=== PATIENT | female | born 1955 | race Caucasian/White ===

== ENCOUNTER → 2019-05-19 08:29 | Outpatient (CLI) | payer OTHER, SELFPAY ==
--- NOTE | ~2019-05-19 | CT_ITS ---
EXAMINATION: CT chest high resolution wo az EXAM DATE: 05/19/2019 09:08 INDICATION: Bronchiectasis. TECHNIQUE: Spiral CT of the chest without contrast. HRCT. Axial, coronal and sagittal images were re viewed. Coronal maximum intensity pixel images of chest reviewed. The dose-length product (DLP) for this examination was 147.61 mGy-cm. The exposure was tailored according to patient size (auto mA ex posure control), and iterative reconstruction (ASIR) was used as additional dose reduction technique. Comparison is made to prior examination from 30. FINDINGS: Again there is severe anterior, right middle lobe and lingular bronchiectasis with small a mount of adjacent airspace disease and some endobronchial debris. Airways otherwise widely patent. Sm all regions of tree-in-bud pattern reticular nodular airspace disease, probably chronic infectious pr ocess. There is a new 4 mm nodule in the right lower lobe on image 85, probably sequela from the same chronic process. Otherwise there is no significant interval change. Lungs are hyperinflated. No intr alobular septal thickening on the HRCT. There is no mediastinal, hilar or axillary lymphadenopathy. There are no pleural or pericardial effusions. There is no pneumothorax. Heart normal in size. No evidence of coronary arterial calcification. Upper abdomen is unremarkable. Mild thoracic spon dylosis. Old left rib fracture. IMPRESSION: 1. Severe right middle lobe and lingular bronchiectasis with mucus plugging unchanged. 2. Some scattered reticulonodular patterns with a new nodule in the right lower lobe likely same chr onic process. 3. Hyperinflation. Reviewed, dictated and finalized at location A. IMPRESSION: 1. Severe right middle lobe and lingular bronchiectasis with mucus plugging un changed. 2. Some scattered reticulonodular patterns with a new nodule in the right lowe r lobe likely same chronic process. 3. Hyperinflation.
== END ==
PROVIDERS: PCP Family Medicine; Visit Provider Nurse Practitioner Family
DX: J47.9 Bronchiectasis, uncomplicated (principal); R91.8 Other nonspecific abnormal finding of lung field
CPT/HCPCS: 71250

== ENCOUNTER → 2019-11-24 09:20 | Outpatient (CLI) | payer OTHER, SELFPAY ==
--- NOTE | ~2019-11-24 | CT_ITS ---
EXAMINATION:CT chest wo con DATE: 11/24/2019 09:43 INDICATION: Bronchiectasis, uncomplicated. TECHNIQUE: Computed tomography (CT) of the chest was performed without intravenous contrast. Automate d exposure control and iterative reconstruction technique were employed. The dose-length product (DLP ) was 151.21 mGy-cm. COMPARISON: Chest CT 05/19/2019 FINDINGS: There is mild scarring at the lung apices. There is varicose bronchiectasis involving the r ight middle lobe, lingula, and anteromedial segment left lower lobe. There is mild bronchiectasis in anterior segment right upper lobe. There is a new 10 mm nodule in right lower lobe with surrounding g roundglass opacity. There is mucous plugging in right lower lobe. There are centrilobular nodules and tree-in-bud opacities in right middle lobe and lingula. No pleural effusion. The heart size is dana l. No pericardial effusion. There is mild thoracic spondylosis. IMPRESSION: 1. New 10 mm nodule with surrounding groundglass opacity in right lung lower lobe, most likely infect ion. Noncontrast, low-dose chest CT is recommended in 3-6 months to exclude malignancy. 2. Bronchiectasis in the lungs, worst in the right middle lobe and lingula. 3. Centrilobular nodules and tree-in-bud opacities in right middle lobe and lingula, consistent with chronic infection such as Mycobacterium avium intracellulare (JANES). Reviewed, dictated and finalized at location A. IMPRESSION: 1. New 10 mm nodule with surrounding groundglass opacity in right lung lower lo be, most likely infection. Noncontrast, low-dose chest CT is recommended in 3-6 months to exclude malignancy. 2. Bronchiectasis in the lungs, worst in the right middle lobe and lingula. 3. Centrilobular nodules and tree-in-bud opacities in right middle lobe and ravi gula, consistent with chronic infection such as Mycobacterium avium intracellul are (JANES).
== END ==
PROVIDERS: Visit Provider Nurse Practitioner Family
DX: J47.9 Bronchiectasis, uncomplicated (principal); R91.8 Other nonspecific abnormal finding of lung field
CPT/HCPCS: 71250

== ENCOUNTER 2019-12-19 00:53 | Outpatient (CLI) | payer OTHER, SELFPAY ==
[2019-12-19 18:59] LABS: SARS-CoV-2 RNA PCR Negative
== END 2019-12-19 00:54 | disposition home or self-care (01) ==
LOC: ANHCOVIDDT 00:54
PROVIDERS: PCP Family Medicine; Visit Provider Internal Medicine Critical Care Medicine
DX: Z01.812 Encounter for preprocedural laboratory examination (principal); Z20.828 Contact with and (suspected) exposure to other viral communicable diseases
CPT/HCPCS: 87635; C9803; U0003

== ENCOUNTER 2019-12-22 01:42 | Day surgery (SDC) | payer OTHER, SELFPAY ==
[2019-12-16 15:02] VITALS: BMI 22.1
[2019-12-22] VITALS (8 sets, daily range): BP systolic 110–153; BP diastolic 51–103; PULSE 57–87; RESP 14–25; TEMP 36.2–36.8; O2SAT 99–100; BMI 23.1
[2019-12-22] MEDS: LACTATED RINGERS 1,000 ML 150 ML IV CONT (11:19)
--- NOTE | 2019-12-22 12:15 | P.PNAN_ITS ---
Anes - Initial Pre Proc Eval Procedure: Operation Date: 12/22/19 13:00 Proposed Procedures p Bronchoscopy - Sergey Tolliver MD Date/Time: 12/22/19 12:15 Surgeon: Sergey Tolliver MD Pre Op Diagnosis: bronchiectasis Patient Data Age: 64 Gender: F Height: 5 ft 3 in Weight: 59.1 kg Last Vital Signs Temp 98.2 F 12/22/19 11:01 Pulse 62 12/22/19 11:01 Resp 16 12/22/19 11:01 BP 113/54 L 12/22/19 11:01 Pulse Ox 100 12/22/19 11:01 Allergies Allergy/AdvReac Type Severity Reaction Status Date / Time azithromycin AdvReac Unknown STOMACH Verified 12/22/19 11:00 ISSUES Home Medications Medication Instructions Recorded Confirmed Type estradiol 0.1 mg/24 hr weekly 1 patch TRANSDERM WEEKLY each 12/08/19 12/22/19 History transdermal patch albuterol sulfate [Ventolin HFA] 2 puff INHALATION QID PRN 12/16/19 12/22/19 History ktxddakybbzw-qju-uogq-FA-vit K 1 tablet PO DAILY 12/16/19 12/22/19 History [Adults Multivitamin] Patient hx anesthesia problems: none Family hx anesthesia problems: none PMFSH Past Medical History Medical History (Updated 12/08/19 @ 10:28 by Sergey Tolliver MD) Fatigue JANES (mycobacterium avium-intracellulare) Postsurgical menopause Pulmonary mycobacterial infection Diagnosed 2001 had been on extensive treatment with triple antibiotics over the course of 2 years. Screening cholesterol level Screening mammogram, encounter for Vitamin D deficiency Surgical History Surgical History H/O: hysterectomy Family History Family History Father Family history of lung cancer, Onset Age: 80 Family history of malignant neoplasm of brain, Onset Age: 80 Family history of malignant neoplasm of bone, Onset Age: 80 Other Diabetes mellitus Family history of cardiovascular disease Family history of elevated blood lipids Malignant neoplasm of prostate Social History Social History Smoking status: Never smoker Second hand tobacco smoke exposure: No Alcohol intake: current Drinks per week: 3 Substance use: never Spiritual care concerns: No Anes - Eval Final PreProcedure Day of Procedure 12/22/19 12:15 Patient weight: normal Heart: regular rate and rhythm Lungs: clear to auscultation Airway: Mallampati scale class II Neurological: alert and oriented Last oral intake: >/= 8 hours ASA classification: III Emergent: no Anesthetic plan: proceed Anesthesia type and monitoring: general LMA (or ETT; will check with Pulmonology) and standard monitoring Informed Consent: The patient's anesthetic plan and its attendant risks and benefits were discussed with the patient/family/POA. Questions were solicited and answers provided to the satisfaction of the patient/family/POA.
--- NOTE | 2019-12-22 13:16 | WPDHPUPDATE1 ---
History and Physical Update Update Date/Time: 12/22/19 13:16 History and Physical has been reviewed, including an updated exam of the patient. There are NO changes in the patient's condition. Risks, benefits, and alternatives have been discussed and questions answered. Patient agrees to proceed with procedure.
[2019-12-22] MEDS: LIDOCAINE HCL 2% LOCAL INJ 20 ML VIAL 6 ML IRRIGATION (13:41)
[2019-12-22] MEDS: SODIUM CHLORIDE 0.9% IV 500 ML BAG 180 ML IRRIGATION (13:42)
--- NOTE | 2019-12-22 14:34 | SUR.PHASEII ---
1350 DR. GAMBLE AT BEDSIDE IN GI RECOVERY. STATES NO NEED FOR POST PROCEDURE CHEST XRAY.
== END 2019-12-22 15:05 | disposition home or self-care (01) ==
PROVIDERS: PCP Family Medicine; Visit Provider Internal Medicine Critical Care Medicine
PROC: 0BJ08ZZ Inspection of Tracheobronchial Tree, Via Natural or Artificial Opening Endoscopic (ICD-10-PCS; CPT 31622; principal; 2019-12-22 13:00)
DX: J18.9 Pneumonia, unspecified organism (principal); R06.02 Shortness of breath; R91.1 Solitary pulmonary nodule; E55.9 Vitamin D deficiency, unspecified; Z90.2 Acquired absence of lung [part of]
CPT/HCPCS: 31624; 36415; 87015; 87070; 87075; 87116; 87205; 87206; 87279; 87486; 87581; 87635; 88104; 88108; 88160; 88184; 88305; 88312; C9803; J2405; J2704; J7040; J7120; U0003

== ENCOUNTER 2020-01-21 09:34 | Outpatient (CLI) | payer OTHER, SELFPAY ==
--- NOTE | ~2020-01-21 | CT_ITS ---
EXAMINATION: CT chest wo con EXAM DATE: 01/21/2020 09:58 INDICATION: J18.9 - Pneumonia, unspecified organism. TECHNIQUE: Spiral CT of the chest without contrast. Axial, coronal and sagittal images were reviewe d. Coronal maximum intensity pixel images of chest reviewed. The dose-length product (DLP) for this examination was 136.15 mGy-cm. The exposure was tailored according to patient size (auto mA exposur e control), and iterative reconstruction (ASIR) was used as additional dose reduction technique. Comp arison is made to prior examination from 11/24/2019. FINDINGS: There is severe right middle lobe and lingular bronchiectasis, less in the lower lobes. So me scattered reticulonodular tree-in-bud pattern opacities typically indicating endobronchial spread, chronic infectious process such as TB or JANES. Resolution of previously seen right lower lobe 10 mm n odule with groundglass halo, most likely infectious. No opacities suspicious for malignancy on this exam. There are no pleural or pericardial effusions. Tracheobronchial tree is patent. There is no media stinal, hilar or axillary lymphadenopathy. There is no pneumothorax. Heart normal in size. No e vidence of coronary arterial calcification. Upper abdomen is unremarkable. There is mild thoracic spondylosis without osteoblastic or osteolytic lesions identified. IMPRESSION: 1. Resolution of previously seen right lower lobe suspicious nodular density. 2. Bronchiectasis, scattered associated tree-in-bud pattern opacities likely endobronchial spread of chronic infectious process. Reviewed, dictated and finalized at location A. SHAVER IMPRESSION: 1. Resolution of previously seen right lower lobe suspicious nodular density. 2. Bronchiectasis, scattered associated tree-in-bud pattern opacities likely e ndobronchial spread of chronic infectious process.
== END 2020-01-21 09:35 | disposition home or self-care (01) ==
PROVIDERS: PCP Family Medicine; Visit Provider Internal Medicine Critical Care Medicine
DX: J18.9 Pneumonia, unspecified organism (principal); R91.8 Other nonspecific abnormal finding of lung field
CPT/HCPCS: 71250

== ENCOUNTER 2020-02-06 01:01 | Outpatient (CLI) | payer OTHER, SELFPAY ==
[2020-02-06 18:31] LABS: SARS-CoV-2 RNA PCR Negative
== END 2020-02-06 01:02 | disposition home or self-care (01) ==
LOC: ANHCOVIDDT 01:01
PROVIDERS: PCP Family Medicine; Visit Provider Internal Medicine Critical Care Medicine
DX: Z01.812 Encounter for preprocedural laboratory examination (principal); Z20.828 Contact with and (suspected) exposure to other viral communicable diseases
CPT/HCPCS: 87635; C9803; U0003

== ENCOUNTER 2020-02-09 01:05 | Day surgery (SDC) | payer OTHER, SELFPAY ==
[2020-02-01 12:18] VITALS: BMI 23.0
--- NOTE | ~2020-02-09 | XR_ITS ---
EXAMINATION: XR chest 1V portable EXAM DATE: 02/09/2020 13:19 INDICATION: Post Bronchoscopy . TECHNIQUE: Portable AP frontal chest x-ray was obtained. Comparison is made to prior examination from 09/24/2017. FINDINGS: There is moderate chronic hyperinflation. Some ill-defined bilateral mid lung zone airspace disease, probably same process described on recent CT scan dated 01/21/2020. No postprocedure pneumo thorax. Cardiomediastinal silhouette is normal. Mild degenerative changes. IMPRESSION: 1. Subsegmental ill-defined bilateral airspace disease, correlate with prior CT. 2. Chronic hyperinflation. 3. No evidence pneumothorax. Reviewed, dictated and finalized at location A. 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 Subsegmental ill-defined bilateral airspace disease, correlate with prior C T. 2. Chronic hyperinflation. 3. No evidence pneumothorax.
--- NOTE | 2020-02-09 09:16 | PM.IMHP ---
H&P: HPI History of Present Illness Date/Time: 02/08/2009:16 Chief Complaint: weakness, fatigue, dyspnea Narrative: Cristi Abraham is a 64 year old female well known to me with history of MAC lung disease who is here for a second bronchoscopy today. I suspected atypical pneumonia after first bronchoscopy showed signs of active infection but all cultures were negative but she continues to feel weak and unwell but denies any significant cough or sputum production, fever, chills, night sweats or weight loss. Review of Systems Review of Systems: All systems reviewed & are unremarkable except as noted in HPI and below PMFSH Past Medical History Medical History Atypical pneumonia Fatigue JANES (mycobacterium avium-intracellulare) Postsurgical menopause Pulmonary mycobacterial infection Diagnosed 2001 had been on extensive treatment with triple antibiotics over the course of 2 years. Screening cholesterol level Screening mammogram, encounter for Vitamin D deficiency Surgical History Surgical History H/O: hysterectomy Family History Family History Father Family history of lung cancer, Onset Age: 80 Family history of malignant neoplasm of brain, Onset Age: 80 Family history of malignant neoplasm of bone, Onset Age: 80 Other Diabetes mellitus Family history of cardiovascular disease Family history of elevated blood lipids Malignant neoplasm of prostate Social History Social History Smoking status: Never smoker Second hand tobacco smoke exposure: No Alcohol intake: current Drinks per week: 3 Substance use: never Substance use type: does not use Spiritual care concerns: No Meds Home Medications and Allergies Home Medications Medication Instructions Recorded Confirmed Type estradiol 0.1 mg/24 hr weekly 1 patch TRANSDERM WEEKLY each 12/08/19 02/22/20 History transdermal patch albuterol sulfate [Ventolin HFA] 2 puff INHALATION QID PRN 12/16/19 02/22/20 History svesfsnbsdhm-enw-cxai-FA-vit K 1 tablet PO DAILY 12/16/19 02/22/20 History [Adults Multivitamin] azithromycin 250 mg tablet 500 mg PO 3XW 5 Days #36 tablet 02/22/20 02/22/20 Rx pyridoxine (vitamin B6) 50 mg 50 mg PO DAILY #30 tablet 02/22/20 02/22/20 Rx tablet rifampin 300 mg capsule 600 mg PO 3XW #14 cap 02/22/20 02/22/20 Rx ethambutol 400 mg tablet 1,500 mg PO 3XW 60 Days #98 tablet 02/25/20 Rx Allergies Allergy/AdvReac Type Severity Reaction Status Date / Time azithromycin AdvReac Unknown STOMACH Verified 02/22/20 09:55 ISSUES Exam Const: General: cooperative, healthy appearing, comfortable, no acute distress, well developed, alert, awake and Physically active Nutritional Appearance: average body habitus and well nourished Orientation/consciousness: oriented to person, oriented to place, oriented to time and patient oriented x3 Limitations: no limitations HENMT: Head: normal to inspection, normocephalic and atraumatic Eyes: General: appearance normal, both eyes and all related structures Neck: Neck: trachea midline and supple Resp: Auscultation: clear to auscultation bilaterally Cardio: Jugular venous distension: no JVD Rate: regular rate Rhythm: regular rhythm Heart sounds: S1 normal heart sound present and S2 normal heart sound present GI: Inspection: normal to inspection Auscultation: normal bowel sounds Skin: General skin exam: normal color Lesions: no lesions Rashes: no rashes Neuro: General: oriented to person, oriented to place, oriented to time and patient oriented x3 Cognition (Neuro): normal cognition Speech: normal speech Extrem: General: no clubbing, cyanosis or edema Psych: Appearance: grossly normal and well kempt Mental Status: mental statu
[2020-02-09 10:43] VITALS: BP 124/88; PULSE 68; RESP 18; TEMP 36.8; O2SAT 100
[2020-02-09] MEDS: LACTATED RINGERS 1,000 ML 150 ML IV CONT (10:48)
--- NOTE | 2020-02-09 11:23 | WPDANESEPPF ---
Anes - Initial Pre Proc Eval Procedure: Operation Date: 02/09/20 12:00 Proposed Procedures p Bronchoscopy With Transbronchial Biopsy - Sergey Tolliver MD Date/Time: 02/09/20 11:23 Surgeon: Sergey Tolliver MD Pre Op Diagnosis: Pneumonia Patient Data Age: 64 Gender: F Height: 5 ft 3 in Weight: 60.9 kg Last Vital Signs Temp 98.3 F 02/09/20 10:43 Pulse 68 02/09/20 10:43 Resp 18 02/09/20 10:43 BP 124/88 02/09/20 10:43 Pulse Ox 100 02/09/20 10:43 Allergies Allergy/AdvReac Type Severity Reaction Status Date / Time azithromycin AdvReac Unknown STOMACH Verified 02/09/20 10:42 ISSUES Home Medications Medication Instructions Recorded Confirmed Type estradiol 0.1 mg/24 hr weekly 1 patch TRANSDERM WEEKLY each 12/08/19 02/01/20 History transdermal patch albuterol sulfate [Ventolin HFA] 2 puff INHALATION QID PRN 12/16/19 02/01/20 History zvlmxszrrvif-kya-rhur-FA-vit K 1 tablet PO DAILY 12/16/19 02/01/20 History [Adults Multivitamin] Patient hx anesthesia problems: none Family hx anesthesia problems: none PMFSH Past Medical History Medical History (Updated 01/21/20 @ 13:56 by Sergey Tolliver MD) Atypical pneumonia Fatigue JANES (mycobacterium avium-intracellulare) Postsurgical menopause Pulmonary mycobacterial infection Diagnosed 2001 had been on extensive treatment with triple antibiotics over the course of 2 years. Screening cholesterol level Screening mammogram, encounter for Vitamin D deficiency Surgical History Surgical History H/O: hysterectomy Family History Family History Father Family history of lung cancer, Onset Age: 80 Family history of malignant neoplasm of brain, Onset Age: 80 Family history of malignant neoplasm of bone, Onset Age: 80 Other Diabetes mellitus Family history of cardiovascular disease Family history of elevated blood lipids Malignant neoplasm of prostate Social History Social History Smoking status: Never smoker Second hand tobacco smoke exposure: No Alcohol intake: current Drinks per week: 3 Substance use: never Substance use type: does not use Living arrangements: with family Spiritual care concerns: No Anes - Eval Final PreProcedure Day of Procedure 02/09/20 11:23 Patient weight: normal Heart: regular rate and rhythm Lungs: clear to auscultation Airway: Mallampati scale class II Neurological: alert and oriented Last oral intake: >/= 8 hours ASA classification: III Emergent: no Anesthetic plan: proceed Anesthesia type and monitoring: general ETT (ETT or LMA) and standard monitoring Informed Consent: The patient's anesthetic plan and its attendant risks and benefits were discussed with the patient/family/POA. Questions were solicited and answers provided to the satisfaction of the patient/family/POA.
--- NOTE | 2020-02-09 12:10 | WPDHPUPDATE1 ---
History and Physical Update Update Date/Time: 02/09/20 12:10 History and Physical has been reviewed, including an updated exam of the patient. There are NO changes in the patient's condition. Risks, benefits, and alternatives have been discussed and questions answered. Patient agrees to proceed with procedure.
[2020-02-09 12:57] VITALS: BP 93/50; PULSE 76; RESP 27; TEMP 36.4; O2SAT 97
[2020-02-09 13:07] VITALS: BP 108/62; PULSE 77; RESP 17; O2SAT 99
[2020-02-09 13:17] VITALS: BP 114/61; PULSE 80; RESP 21; O2SAT 97
[2020-02-09 13:27] VITALS: BP 120/65; PULSE 67; RESP 18; O2SAT 94
[2020-02-09 13:37] VITALS: BP 130/67; PULSE 68; RESP 14; O2SAT 94
[2020-02-09 13:58] LABS: Appearance Bronchial Fluid Cloudy; Color Bronchial Fluid White; Lymphocytes Bronchial Fluid 10 %; Neutrophils Bronchial Fluid 90 %; Source Bronchial Fluid Bronchial Washings
[2020-02-09 14:02] LABS: Appearance Bronchial Fluid Cloudy; Source Bronchial Fluid Bronchial Lavage
[2020-02-09 14:03] LABS: Color Bronchial Fluid White; Lymphocytes Bronchial Fluid 18 %; Neutrophils Bronchial Fluid 82 %
--- NOTE | 2020-02-10 09:37 | PM.PROC ---
Procedure Note - Detailed Date of procedure: 02/09/20 Pre-op diagnosis: Pneumonia Atypical Pneumonia Procedure performed: Bronchoscopy with BAL, washings, brushings and transbronchial biopsies Description of procedure: The patient is an ASA class II. After she was intubated by Anesthesia with an LMA and sedated, I introduced the bronchoscope and gave 6 cc of 2% lidocaine to the vocal cords. Then I pass the bronchoscope passed the vocal cords and proceeded down the trachea and later into the extended bilateral tracheobronchial tree. She had diffuse thick pus in most airways but greater in RML, and bilateral lower lobes along with friable bilateral airways. Washings were then taken from the bilateral lower lobes and sent for microbiology. I then performed a BAL from the RML using about 60 cc of sterile saline. Finally I performed thee transbronchial biopsies of the RML and all specimens were sent for AFB culture as well as other fungal, bacterial and viral cultures. Anesthesia: GLMA Surgeon: Sergey Tolliver MD Estimated blood loss (mL): 0 Drains: No Packing: No Pathology: yes Complications: None Disposition: same day Findings: Please see description
== END 2020-02-09 13:57 | disposition home or self-care (01) ==
PROVIDERS: PCP Family Medicine; Visit Provider Internal Medicine Critical Care Medicine
PROC: 0BJ08ZZ Inspection of Tracheobronchial Tree, Via Natural or Artificial Opening Endoscopic (ICD-10-PCS; CPT 31622; principal; 2020-02-09 12:00)
DX: J18.9 Pneumonia, unspecified organism (principal); A31.8 Other mycobacterial infections; E55.9 Vitamin D deficiency, unspecified
CPT/HCPCS: 31624; 31623; 31628; 36415; 71045; 85999; 87015; 87070; 87075; 87102; 87107; 87116; 87149; 87205; 87206; 87279; 87281; 87486; 87581; 87635; 88108; C9803; J1100; J2405; J2704; J7040; J7120; U0003

== ENCOUNTER 2020-06-28 15:09 | Outpatient (CLI) | payer OTHER, SELFPAY ==
[2020-06-28 16:10] LABS: Alanine Aminotransferase 13 U/L (4-35); Albumin Level 4.3 g/dL (3.5-5.1); Alkaline Phosphatase 58 U/L (38-126); Aspartate Amino Transferase 24 U/L (14-36); Bilirubin,Total 0.2 mg/dL (0.2-1.3)
== END 2020-06-28 15:10 | disposition home or self-care (01) ==
LOC: ANHLAB 15:11
PROVIDERS: PCP Family Medicine; Visit Provider Internal Medicine Critical Care Medicine
DX: A31.0 Pulmonary mycobacterial infection (principal)
CPT/HCPCS: 36415; 80076

== ENCOUNTER 2020-07-29 17:08 | Outpatient (CLI) | payer OTHER, SELFPAY ==
[2020-07-29 17:32] LABS: Basophils Absolute Auto 0.1 K/mm3 (0.0-0.1); Basophils Percent Auto 0.9 % (0.2-1.2); Eosinophils Absolute Auto 0.2 K/mm3 (0-0.3); Eosinophils Percent Auto 2.9 % (0-4.4); Hematocrit 37.6 % (37.0-47.0); Hemoglobin 12.7 g/dL (12.0-15.0); Immature Granulocyte Absolute 0.01 K/mm3 (0.00-0.031); Immature Granulocyte Percent A 0.1 % (0-0.5); Lymphocytes Absolute Auto 2.46 K/mm3 (0.9-3.2); Lymphocytes Percent Auto 36.1 % (18.3-44.2); Mean Corpuscular HGB Conc 33.8 g/dl (32-36); Mean Corpuscular Volume 88.7 fl (80-100); Mean Platelet Volume 8.9 fl (7.4-10.4); Monocytes Absolute Auto 0.4 K/mm3 (0.1-0.6); Monocytes Percent Auto 5.9 % (2.6-8.5); Neutrophils Absolute Auto 3.7 K/mm3 (1.3-6.7); Neutrophils Percent Auto 54.1 % (45.5-73.1); Platelet Count Result 248 k/mm3 (150-375); Red Blood Count 4.24 M/mm3 (4.2-5.4); Red Cell Distribution Width 13.1 % (11.5-14.5); White Blood Count 6.8 K/mm3 (4.5-10.0)
[2020-07-29 17:41] LABS: Alanine Aminotransferase 13 U/L (4-35); Alkaline Phosphatase 57 U/L (38-126); Aspartate Amino Transferase 25 U/L (14-36); Bilirubin,Total 0.2 mg/dL (0.2-1.3)
[2020-07-29 17:49] LABS: INR 0.9; Partial Thromboplastin Time 29.8 SECONDS (22.3-36.8); Prothrombin Time 13.1 Seconds (11.1-14.7)
== END 2020-07-29 17:09 | disposition home or self-care (01) ==
LOC: ANHLAB 17:10
PROVIDERS: PCP Family Medicine; Visit Provider Internal Medicine Critical Care Medicine
DX: A31.0 Pulmonary mycobacterial infection (principal)
CPT/HCPCS: 36415; 80076; 85025; 85610; 85730

== ENCOUNTER 2021-01-25 14:14 | Outpatient (CLI) | payer OTHER, SELFPAY ==
--- NOTE | ~2021-01-25 | CT_ITS ---
EXAMINATION: CT diagnostic chest wo con DATE: 01/25/2021 14:35 INDICATION: A31.0 - Pulmonary mycobacterial infection TECHNIQUE: Computed tomography (CT) of the chest was performed without intravenous contrast. Addition al 3D reconstructions utilizing coronal maximum intensity projection (MIP) were performed. Automated exposure control and iterative reconstruction technique were employed. The dose-length product was 50 .30 mGy-cm. COMPARISON: 02/09/2020 FINDINGS: Suture line with mild pleural parenchymal scarring at the lateral aspect of the left major fissure an d left lower lobe. Mild biapical pleural-parenchymal scarring. No significant change in chronic varic ose bronchiectasis in the right middle lobe, lingula and anteromedial basilar segment of the left low er lobe. No significant change in associated small centrilobular nodules and tree-in-bud opacities in the regions of varicose bronchiectasis. Additional unchanged mild cylindrical bronchiectasis with so me chronic mucous plugging in the right upper and lower lobes. New 8 x 6 mm nodule in the left lower lobe. No pulmonary edema or pleural effusion. Heart size is normal. No pericardial effusion. Thoracic aorta is normal in caliber. No pathologically enlarged thoracic lymphadenopathy. Mild thoracic spond ylosis. Chronic T8 bone island. IMPRESSION: 1. Chronic bronchiectasis in both lungs most severe and with associated centrilobular nodules and yoko e-in-bud opacities in the right middle lobe, lingula and left lower lobes consistent with chronic inf ection such as Mycobacterium avium intracellulare (JANES). 2. New 7 mm left lower lobe nodule most likely infectious in etiology but consider 3-6 month follow-u p low-dose noncontrast chest CT. Reviewed, dictated and finalized at location A. 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 Chronic bronchiectasis in both lungs most severe and with associated centril obular nodules and tree-in-bud opacities in the right middle lobe, lingula and left lower lobes consistent with chronic infection such as Mycobacterium avium intracellulare (JANES). 2. New 7 mm left lower lobe nodule most likely infectious in etiology but consi charline 3-6 month follow-up low-dose noncontrast chest CT.
== END 2021-01-25 14:15 ==
LOC: MICIMG 14:16
PROVIDERS: Visit Provider Internal Medicine Pulmonary Disease
DX: A31.0 Pulmonary mycobacterial infection (principal); R91.8 Other nonspecific abnormal finding of lung field
CPT/HCPCS: 71250

== ENCOUNTER → 2021-05-09 08:27 | Outpatient (CLI) | payer OTHER, SELFPAY ==
[2021-05-09 11:42] LABS: Influenza A QL RT-PCR Negative (Negative); Influenza B QL RT-PCR Negative (Negative); SARS-CoV-2 RNA PCR Negative
== END ==
PROVIDERS: PCP Family Medicine; Visit Provider Family Medicine
DX: R05.9 Cough, unspecified (principal); Z20.822 Contact with and (suspected) exposure to COVID-19
CPT/HCPCS: 87502; C9803; U0003; U0005

== ENCOUNTER → 2021-11-02 15:45 | Outpatient (CLI) | payer OTHER, SELFPAY ==
--- NOTE | ~2021-11-02 | MM_ITS ---
EXAMINATION: MM screening iker BI w jasmyn HISTORY: Screening TECHNIQUE: Craniocaudal and mediolateral oblique 3-D tomosynthesis images were obtained and synthetic 2-D images were generated. CAD analysis was submitted and interpreted. COMPARISON: No prior mammogram is available for comparison at this institution. BREAST PARENCHYMAL COMPOSITION: The breasts are heterogeneously dense, which may obscure small masses FINDINGS: The right breast is stable without evidence for malignancy. There are multiple new masses i n the left breast. There are no suspicious calcifications or architectural distortion. IMPRESSION: 1. Multiple left breast masses. 2. Additional mammographic views and possible breast ultrasound are recommended. BI-RADS Category 0: Incomplete: Needs additional imaging evaluation. Reviewed, dictated and finalized at location A. IMPRESSION: 1. Multiple left breast masses. 2. Additional mammographic views and possible breast ultrasound are recommended . BI-RADS Category 0: Incomplete: Needs additional imaging evaluation.
--- NOTE | ~2021-11-02 | DEXA_ITS ---
Bone Density Report Name: PAULO VELASQUEZ Age: 66 Sex: Female Ethnicity: White Date of : 1955 Indication: postmenopausal; screening for osteoporosis; hysterectomy; Referring Provider: SASHA ALEGRE Study: Bone densitometry was performed. Exam Date: November 02, 2021 Accession number: [id number] Bone Density: Region BMD T-score Z-score Classification AP Spine (L1-L4) 0.834 -1.9 0.1 Osteopenia Femoral Neck (Left) 0.581 -2.4 -0.7 Osteopenia Total Hip (Left) 0.779 -1.3 0.1 Osteopenia Femoral Neck (Right) 0.578 -2.4 -0.7 Osteopenia Total Hip (Right) 0.751 -1.6 -0.1 Osteopenia Total Hip Mean 0.765 -1.5 0.0 Osteopenia World Health Organization criteria for BMD impression classify patients as: Normal (T-score at or above -1.0), Osteopenia (T-score between -1.0 and -2.5), or Osteoporosis (T-score at or below -2.5). 10-year Fracture Risk: FRAX not reported because: Treated for osteoporosis Clinical Information Provided by Patient: Is being treated for osteoporosis Has used the following medications: HRT (i.e. estrogen/hormone therapy), Vitamin D Has the following medical conditions: Hysterectomy Patient maximum height was 63 Menopause Age: 30 Drinks caffeinated beverages Onset of menses at age 11 Number of children 2 Impression: The patient has low bone mass, based on the Left Femoral Neck T-score. Discussion: It is important to ask patients whether they are taking their medications and to encourage continued and appropriate compliance with their osteoporosis therapies to reduce fracture risk. It is also important to review their risk factors and encourage appropriate calcium and vitamin D intakes, exercise, fall prevention and other lifestyle measures. Follow-Up: Consider a repeat BMD and Vertebral Fracture Assessment (VFA) exam in 2 years or sooner if medically necessary, to reassess this patient's status. Reported by: GREGG on 11/02/2021 4:14:00 PM. Reviewed, dictated and finalized at location AMarisabel MARIANO
== END ==
PROVIDERS: PCP Family Medicine; Visit Provider Family Medicine
DX: Z12.31 Encounter for screening mammogram for malignant neoplasm of breast (principal); Z78.0 Asymptomatic menopausal state; R92.8 Other abnormal and inconclusive findings on diagnostic imaging of breast; M85.88 Other specified disorders of bone density and structure, other site; M85.852 Other specified disorders of bone density and structure, left thigh; M85.851 Other specified disorders of bone density and structure, right thigh
CPT/HCPCS: 77063; 77067; 77080

== ENCOUNTER → 2021-11-27 07:53 | Outpatient (CLI) | payer OTHER, SELFPAY ==
--- NOTE | ~2021-11-27 | MMUS_ITS ---
EXAMINATION: MM diagnostic iker LT w jasmyn, US breast LT limited HISTORY: Left breast masses on screening mammogram TECHNIQUE: Additional 3-D tomosynthesis images of the left breast were performed and synthetic 2-D im ages were generated. CAD analysis was submitted and interpreted. COMPARISON: 11/02/2021, 12/27/2013, 05/12/2013, 05/04/2013 FINDINGS: MAMMOGRAM: There is a 10 mm oval, obscured, equal density mass in the posterior third of the lower-ou ter breast at the 4:00 location 6 cm from the nipple. Additional possible masses of the breast are no t definitely seen with spot compression. ULTRASOUND: There are multiple cysts in the lower outer quadrant of the left breast. There is an 11 m m x 5 mm oval, circumscribed, parallel, hypoechoic mass with no posterior features or internal vascul arity at the 4:00 location 6 cm from the nipple. IMPRESSION: 1. Indeterminate left breast mass. 2. Ultrasound-guided biopsy is recommended. BI-RADS category 4, suspicious findings. Reviewed, dictated and finalized at location A. IMPRESSION: 1. Indeterminate left breast mass. 2. Ultrasound-guided biopsy is recommended. BI-RADS category 4, suspicious findings.
== END ==
PROVIDERS: PCP Family Medicine; Visit Provider Physician Assistant
DX: R92.8 Other abnormal and inconclusive findings on diagnostic imaging of breast (principal); N63.23 Unspecified lump in the left breast, lower outer quadrant
CPT/HCPCS: 76642; 77061; 77065; G0279

== ENCOUNTER 2022-06-20 08:14 | Outpatient (CLI) | payer BC, OTHER, SELFPAY ==
--- NOTE | 2022-06-20 08:13 | ECHO_ITS ---
Patient Info Name: Cristi Abraham Age: 67 years : 1955 Gender: Female Ht: 63 in Wt: 140 lbs BSA: 1.69 m2 HR: 66 bpm BP: 143 / 79 mmHg Heart Rhythm: Sinus Rhythm Technical Quality: Fair Exam Date: 06/20/2022 8:21 AM Exam Location: [facility] Pulmonary Patient Status: Outpatient Admit Date: 06/20/2022 Staff Ordering Physician: Xavier Otto DO Stapler Machine: No Mina RDCS Attending Provider: Xavier Otto DO Referring Physician: Fam MENDOZA; Exam Type: CA echo doppler color flow Study Info Indications R06.00 - Dyspnea, unspecified Complete two-dimensional, color flow and Doppler transthoracic echocardiogram is performed. Summary 1. Complete two-dimensional, color flow and Doppler transthoracic echocardiogram is performed. 2. Left ventricular chamber dimension is normal. 3. Left ventricular systolic function is normal, estimated at 65-70%. 4. The left ventricular diastolic function is grade II diastolic dysfunction. 5. E/e' 9 is minimally elevated. 6. There is trace mitral valve regurgitation. 7. There is trace tricuspid valve regurgitation. 8. No pulmonary hypertension, estimated pulmonary arterial systolic pressure is 20 mmHg. Left Ventricle E/e' 9 is minimally elevated. Left ventricular chamber dimension is normal. Left ventricular systolic function is normal, estimated at 65-70%. The left ventricular diastolic function is grade II diastolic dysfunction. Right Ventricle Right ventricular systolic function is normal and with normal TAPSE 2.4 cm. Right ventricular chamber dimension is normal. Left Atria Left atrial chamber dimension is normal. Right Atria Right atrial chamber dimension is normal. Aortic Valve The aortic valve is trileaflet. There is no aortic valve stenosis. There is no aortic valve regurgitation. Pulmonic Valve There is no pulmonic regurgitation. Mitral Valve There is no mitral valve stenosis. There is trace mitral valve regurgitation. Tricuspid Valve There is trace tricuspid valve regurgitation. No pulmonary hypertension, estimated pulmonary arterial systolic pressure is 20 mmHg. Pericardium/Pleural There is no pericardial effusion. Inferior Vena Cava Normal inferior vena cava with >50% collapse upon inspiration consistent with normal right atrial pressure, 5 mmHg. Aorta The aortic root size at the sinus of Valsalva is normal. Left Ventricular Outflow Tract Name Value Normal LVOT 2D LVOT Diameter 2.0 cm LVOT Doppler LVOT Peak Gradient 3 mmHg LVOT Mean Gradient 2 mmHg LVOT VTI 21 cm LVOT VTI/AV VTI Ratio 0.7 LVOT Stroke Volume 63 ml LVOT CO 3.9 l/min LVOT CI 2.3 l/min/m2 Pulmonic Valve Name Value Normal RVOT Doppler --------
--- NOTE | 2022-06-20 08:13 | EST_ITS ---
Patient Info Name: Cristi Abraham Age: 67 years : 1955 Gender: Female Ht: 63 in Wt: 140 lbs BSA: 1.69 m2 HR: 61 bpm BP: 146 / 82 mmHg Heart Rhythm: Sinus Rhythm Exam Date: 06/20/2022 9:13 AM Exam Location: [facility] Stress Patient Status: Outpatient Admit Date: 06/20/2022 Staff Ordering Physician: Xavier Otto DO Attending Provider: Xavier Otto DO Exercise Technologist: Danielle Landin CT Exercise Physician: Xavier Otto DO Exam Type: CA stress test treadmill Study Info Indications R06.09 - Other forms of dyspnea A treadmill exercise stress test was performed. Summary 1. 1. Negative Catracho exercise stress test for ischemic ST changes by ECG criteria. 2. 2. Good functional capacity, achieving 7 METs of workload. 3. 3. Baseline hypertension with hypertensive response to exercise. 4. 4. Appropriate HR response to exercise. 5. 5. Appropriate HR recovery at 1 minute post exercise. 6. 6. No imaging with stress testing. 7. 7. Patient informed of the above results. Protocol: Catracho Stress ECG Details Stage: REST Duration (min): 0 min : 52 sec Speed (mph): 0.0 Grade (%): 0 HR (bpm): 66 SBP (mmHg): 146 DBP (mmHg): 82 METS: --- Stage: REST Duration (min): 7 min : 35 sec Speed (mph): 0.0 Grade (%): 0 HR (bpm): 70 SBP (mmHg): 146 DBP (mmHg): 82 METS: --- Stage: STAGE 1 Duration (min): 1 min : 0 sec Speed (mph): 1.7 Grade (%): 10 HR (bpm): 91 SBP (mmHg): 146 DBP (mmHg): 82 METS: --- Stage: STAGE 1 Duration (min): 2 min : 0 sec Speed (mph): 1.7 Grade (%): 10 HR (bpm): 114 SBP (mmHg): 146 DBP (mmHg): 82 METS: --- Stage: STAGE 1 Duration (min): 3 min : 0 sec Speed (mph): 1.7 Grade (%): 10 HR (bpm): 111 SBP (mmHg): 146 DBP (mmHg): 82 METS: --- Stage: STAGE 2 Duration (min): 1 min : 0 sec Speed (mph): 2.5 Grade (%): 12 HR (bpm): 122 SBP (mmHg): 201 DBP (mmHg): 80 METS: --- Stage: STAGE 2 Duration (min): 2 min : 0 sec Speed (mph): 2.5 Grade (%): 12 HR (bpm): 125 SBP (mmHg): 199 DBP (mmHg): 77 METS: --- Stage: STAGE 2 Duration (min): 3 min : 0 sec Speed (mph): 2.5 Grade (%): 12 HR (bpm): 124 SBP (mmHg): 199 DBP (mmHg): 77 METS: --- Stage: RECOVERY Duration (min): 0 min : 59 sec Speed (mph): 0.0 Grade (%): 0 HR (bpm): 92 SBP (mmHg): 207 DBP (mmHg): 75 METS: --- Stage: RECOVERY Duration (min): 1 min : 59 sec Speed (mph): 0.0 Grade (%): 0 HR (bpm): 72 SBP (mmHg): 207 DBP (mmHg): 75 METS: --- Stage: RECOVERY Duration (min): 2 min : 59 sec Speed (mph): 0.0 Grade (%): 0 HR (bpm): 70 SBP (mmHg): 163 DBP (mmHg): 76 METS: --- Stage: RECOVERY Duration (min): 3 min : 4 sec Speed (mph): 0.0 Grade (%): 0 HR (bpm): 70 SBP (mmHg): 163 DB
== END 2022-06-20 08:15 | disposition home or self-care (01) ==
LOC: ANHCARD 08:15
PROVIDERS: PCP Family Medicine; Visit Provider Internal Medicine Cardiovascular Disease
DX: R06.00 Dyspnea, unspecified (principal)
CPT/HCPCS: 93017; 93306

== ENCOUNTER 2022-08-03 11:43 | Outpatient (CLI) | payer BC, OTHER, SELFPAY ==
--- NOTE | ~2022-08-03 | XR_ITS ---
XR chest 2V 08/03/2022 12:04 Indication: Left lower chest pain Procedure: PA and lateral views of the chest Comparison: Comparison to multiple prior studies sequentially, with oldest reviewed study dated 03/2016. Findings: There is stable chronic lingular scarring. Heart size normal. No focal air space disease, p ulmonary edema, pleural effusion or suspected pneumothorax. The lungs are hyperinflated which is cons istent with, but not diagnostic of chronic obstructive pulmonary disease. Impression: 1: No acute cardiopulmonary disease. Reviewed, dictated and finalized at location B. Impression: 1: No acute cardiopulmonary disease.
== END 2022-08-03 11:44 | disposition home or self-care (01) ==
LOC: ANHLAB 11:45
PROVIDERS: PCP Family Medicine; Visit Provider Family Medicine
DX: R07.9 Chest pain, unspecified (principal)
CPT/HCPCS: 71046

== ENCOUNTER 2022-08-13 10:01 | Outpatient (CLI) | payer BC, OTHER, SELFPAY ==
--- NOTE | ~2022-08-13 | CT_ITS ---
CT Scan of the Chest without Contrast: Clinical Indication: Chest pain Technique: Contiguous sections were acquired throughout the chest without intravenous contrast. Dose reduction technique was used on this scan by utilizing automated exposure control and iterative recon struction technique. The dose-length product (DLP) was 139.38 mGy-cm. COMPARISON: 01/25/2021 Findings: There is no evidence of any significant mediastinal, hilar or axillary lymphadenopathy. The mediastin al soft tissues appear normal. There is no evidence of pleural or pericardial effusion. There is a bronchiectatic change, predominantly in the anteromedial right middle lobe, and in the ant erior left lower lobe. There are probable several minimal scattered areas of tree-in-bud nodularity w ith several slightly larger scattered irregular nodules present. Images through the upper abdomen reveal no abnormalities. Impression: Bronchiectasis as well as scattered tree-in-bud opacities and several slightly larger scattered irreg ular nodules, as noted above. Findings are most consistent with acute on chronic small areas infectio us process, such as JANES. Reviewed, dictated and finalized at location M. Impression: Bronchiectasis as well as scattered tree-in-bud opacities and several slightly larger scattered irregular nodules, as noted above. Findings are most consisten t with acute on chronic small areas infectious process, such as JANES.
== END 2022-08-13 10:02 | disposition home or self-care (01) ==
LOC: ANHIMG 10:02
PROVIDERS: PCP Family Medicine; Visit Provider Family Medicine
DX: R07.81 Pleurodynia (principal); A31.0 Pulmonary mycobacterial infection; J47.9 Bronchiectasis, uncomplicated
CPT/HCPCS: 71250

== ENCOUNTER 2024-04-17 12:07 | Emergency (ER) | payer BC, OTHER, SELFPAY ==
--- NOTE | ~2024-04-17 | XR_ITS ---
EXAMINATION: XR chest 2V DATE: 04/17/2024 12:53 INDICATION: 5 days of cough TECHNIQUE: PA and lateral views of the chest were obtained. COMPARISON: Chest radiograph dated 08/03/[address] dated 08/13/2022 FINDINGS: Stable appearance of mild opacities and bronchiectatic changes in the anterior right lower and left m id to lower lung zones, likely sequela of chronic infection. No new airspace opacities, pulmonary esdras ma, pleural effusion or pneumothorax. Heart size is normal. Surgical clip along side the lateral left chest wall where there are changes of a prior thoracotomy. IMPRESSION: 1. Stable appearance of mild opacities and bronchiectatic changes in the anterior left mid to lower a nd right lower lung zones which are likely sequela of chronic infection. No evident acute cardiopulmo nary disease. Reviewed, dictated and finalized at location B. INE ENGINE ASSEMBLER IMPRESSION: 1. Stable appearance of mild opacities and bronchiectatic changes in the anteri or left mid to lower and right lower lung zones which are likely sequela of chr onic infection. No evident acute cardiopulmonary disease.
--- OUTSIDE RECORDS SUMMARY | 2024-04-17 12:14 | XMS_ITS | Clinical Summary ---
Author Organization [facility] [place] Address [address] [place] [address] Phone Care Team Providers Care Road Monkey Name Role Phone Unavailable Primary Care Provider Unavailabl e Allergies Active Allergy Reactions Criticality Noted Date Comments Clonidine Unknown 12/12/2021 Levofloxacin Unknown 12/12/2021 Rofecoxib Rash Low 12/12/2021 Venlafaxine Unknown 12/12/2021 Medications estradioL (CLIMARA) 0.1 mg/24 hr patch estradiol 0.1 mg/24 hr weekly transdermal patch Active CHOLECALCIFEROL , VITAMIN D3, ORAL Take by mouth. Activ e aspirin (ECOTRIN EC) 81 mg Tablet, Delayed Release (E.C.) Take 81 mg by mouth daily. Active GINKGO BILOBA ORAL Take by mouth. Activ e OTHERIndication s:neuriva isabel Provider please include Medication name, dose, route and frequency Active Active Problems No known active problems Family History Medical History Relation Name Comments Pancreatic Cancer Maternal Grandfather Breast Cancer Neg Hx Ovarian Cancer Neg Hx Relation Name Status Comments Maternal Grandfather Social History Tobacco Use Types Packs/Day Years Used Date Smoking Tobacco: Never Smokeless Tobacco: Never Tobacco Cessation:Counseling Given: Yes Alcohol Use Standard Drinks/Week Comments Yes 0 (1 standard drink = 0.6 oz pur e alcohol) Comments No Sex and Gender Information Value Date Recorded Sex Assigned at Not on file Legal Sex Female 10:08 AM CDT Gender Identity Not on file Sexual Orientation Not on file Last Filed Vital Signs Vital Sign Reading Time Taken Comments Blood Pressure 120/72 12/12/2021 11:50 AM CDT Pulse - - Temperature - - Respiratory Rate - - Oxygen Saturation - - Inhaled Oxygen Concentration - - Weight 61.7 kg (136 lb) 12/12/2021 11:50 AM CDT Height 160 cm (5' 3 ) 12/12/2021 11:50 AM CDT Body Mass Index 24.09 12/12/2021 11:50 AM CDT Plan of Treatment Health Maintenance Due Date Last Done Comments COLORECTAL SCREENING 1998 Colorectal Cancer Screening 1998 FIT-DNA Q 3 years 1998 FIT/FOBT Q 1 year 1998 Flex Sig/CT Colonography Q 5 years 1998 PNEUMOCOCCAL VACCINE 65+ YEA RS (2 of 2 - PCV) 04/26/2009 04/26/2008, 12/01/2002 ZOSTER VACCINE (2 of 3) 12/31/2014 11/05/2014 OSTEOPOROSIS SCREENING 2018 DTAP/TDAP/TD VACCINES (2 - Td or Tdap) 03/19/2022 BREAST CANCER SCREENING 11/27/2022 11/27/2021, 11/02 INFLUENZA VACCINE (#1) 2023 02/03/2014 RSV VACCINE (60+ or ) (1 - 1-dose 75+ series) 2028 Procedures Procedure Name Priority Date/Time Associated Diagnosis Comments MAMMO DIAG UNI LEFT 3D ENRIQUE W OR WO CAD Routine 11/27/2021 from Last 3 Months or Most Recently Relevant to Health Maintenance Results * MAMMO DIAG UNI LEFT 3D ENRIQUE W OR WO CAD (11/27/2021) Anatomical Region Laterality Modality Breast Left Other us Abstract Provider MAMMO ORDERABLES Edited Result - Final from Last 3 Months or Most Recently Relevant to Health Maintenance Insurance [facility] [employer] [id number] Member Subscriber Plan / Payer (Ef fective 2021-Present) Name:Cristi Abraham Relation to Subscriber:Self Name:Cristi Abraham Payer ID:[id number] (NAIC) Type:HMO Address: [facility] [id number] [place] [id number]
--- OUTSIDE RECORDS SUMMARY | 2024-04-17 12:14 | XMS_ITS | Clinical Summary ---
Author Organization [facility] Address [address] [place] [id number] Care Team Providers Care Spinning Lathe Operator Name Role Phone No, Physician Primary Care Provider [phone] Allergies No known active allergies Medications estradioL (CLIMARA) 0.075 mg/[address] 1 patch on the skin once a week 4 Active sodium chloride 3 % nebulizer solution Take 4 mL by nebulization 2 (two) times a day 4 Active albuterol 2.5 mg /3 mL (0.083 %) nebulizer solution Take 3 mL (2.5 mg total) by nebulization 2 (two) times a day 4 Active Active Problems Problem Noted Date Diagnosed Date 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 Social History Tobacco Use Types Packs/Day Years Used Date Smoking Tobacco: Never Tobacco Cessation:Counseling Given: Not Answered Personal Safety Answer Date Recorded Getting School Help Needed Not on file 03/19 Comments Unknown Sex and Gender Information Value Date Recorded Sex Assigned at Not on file Legal Sex Female 9:50 AM UX VISUAL DESIGNER Gender Identity Female 03/23/2023 7:13 AM UX VISUAL DESIGNER Sexual Orientation Straight 03/23/2023 7: 13 AM UX VISUAL DESIGNER Obstetrics History Last Filed Vital Signs Vital Sign Reading Time Taken Comments Blood Pressure 148/69 05/14/2023 9:51 AM UX VISUAL DESIGNER Pulse 86 05/14/2023 9:51 AM UX VISUAL DESIGNER Temperature 36.8 C (98.3 F) 05/14/2023 9:51 AM UX VISUAL DESIGNER Respiratory Rate 18 05/14/2023 9:51 AM UX VISUAL DESIGNER Oxygen Saturation 97% 09/24/2017 11: 30 AM CDT Inhaled Oxygen Concentration - - Weight 66.6 kg (146 lb 12.8 oz) 05/14/2023 9:51 AM UX VISUAL DESIGNER Height 160 cm (5' 3 ) 05/14/2023 9:51 AM UX VISUAL DESIGNER Body Mass Index 26 05/14/2023 9:51 AM UX VISUAL DESIGNER Plan of Treatment Health Maintenance Due Date Last Done Comments Colon Cancer Screening-Colonoscopy 1955 Depression Screening 1955 Fall Risk Assessment 1955 Hepatitis C Screening 1955 Osteoporosis Screening-Bone Density Scan 1955 Hepatitis B Screening 1971 Well Visit 65+ 2018 Breast Cancer Screening-Mammogram 11/02/2022 022 Covid-19 Vaccine (2023-04 5 season) 2023 12/29/2022, 02/16/2021, 05/24/2020, Additional history exists Influenza Vaccine (#1) 2023 , 01/10/2022, 12/23/2020, Additional history exists Pneumococcal vaccine 65+ (3 of 3 - PPSV23 or PCV20) 12/07/2023 12/06/2018, 04/26/2008, 12/01/2002 DTaP/Tdap/Td Vaccine (3 - Td or Tdap) 12/06/2028 12/06/2018, 03/19/2012 Zoster Vaccine Completed 03/02/2019, 11/10, 11/05/[address] [place] [address] CHOICE [facility] [place] [facility] PPO [place] MEDICARE COMMERCIAL GENERIC Care Teams Spinning Lathe Operator Relationship Specialty Start Date End Date No, Physician PCP - General 05/14/23
--- OUTSIDE RECORDS SUMMARY | 2024-04-17 12:14 | XMS_ITS | Encounter Summary ---
Author Organization [facility] Facility Care Team Providers Care Senior Copywriter Name Role Phone No, Physician Primary Care Provider [phone] Encounter Details Date Type Department Care Team (Latest Contact Info) Description 07/13/2016 Orders Only [facility] CLINCONV Provider, MD Gale [address] [place] [id number] Social History Tobacco Use Types Packs/Day Years Used Date Smoking Tobacco: Never Assessed Comments Unknown Sex and Gender Information Value Date Recorded Sex Assigned at Not on file Legal Sex Female 9:50 AM SHIFT SUPERVISOR FILM PROCESSING Gender Identity Female 03/23/2023 7:13 AM SHIFT SUPERVISOR FILM PROCESSING Sexual Orientation Straight 03/23/2023 7: 13 AM SHIFT SUPERVISOR FILM PROCESSING documented as of this encounter Plan of Treatment Not on file documented as of this encounter Procedures Procedure Name Priority Date/Time Associated Diagnosis Comments SCAN - LABS 07/16/2016 12:00 AM CDT documented in this encounter Results * SCAN - LABS (07/16/2016 12:00 AM CDT) Narrative 07/16/2016 12:00 AM CDT Ordered by an unspecified provider. us Historical Provider Final Res ult documented in this encounter Visit Diagnoses Not on filedocumented in this encounter Care Teams Senior Copywriter Relationship Specialty Start Date End Date No, Physician PCP - General 05/14/23 documented as of this encounter
--- OUTSIDE RECORDS SUMMARY | 2024-04-17 12:14 | XMS_ITS | Encounter Summary ---
Author Organization [facility] Facility Care Team Providers Care Environmental Maintenance Worker Name Role Phone No, Physician Primary Care Provider [phone] Encounter Details Date Type Department Care Team (Latest Contact Info) Description 05/22/2016 Orders Only [facility] CLINCONV ProviderGale MD [address] [place] [id number] Social History Tobacco Use Types Packs/Day Years Used Date Smoking Tobacco: Never Assessed Comments Unknown Sex and Gender Information Value Date Recorded Sex Assigned at Not on file Legal Sex Female 9:50 AM MARBLE CUTTER Gender Identity Female 03/23/2023 7:13 AM MARBLE CUTTER Sexual Orientation Straight 03/23/2023 7: 13 AM MARBLE CUTTER documented as of this encounter Plan of Treatment Not on file documented as of this encounter Procedures Procedure Name Priority Date/Time Associated Diagnosis Comments SCAN - LABS 05/28/2016 12:00 AM CDT SCAN - LABS 05/24/2016 12:00 AM CDT documented in this encounter Results * SCAN - LABS (05/28/2016 12:00 AM CDT) Narrative 05/28/2016 12:00 AM CDT Ordered by an unspecified provider. Historical Provider Final Res ult * SCAN - LABS (05/24/2016 12:00 AM CDT) Narrative 05/24/2016 12:00 AM CDT Ordered by an unspecified provider. us Historical Provider MD Final Res ult documented in this encounter Visit Diagnoses Not on filedocumented in this encounter Care Teams Environmental Maintenance Worker Relationship Specialty Start Date End Date No, Physician PCP - General 05/14/23 documented as of this encounter
--- OUTSIDE RECORDS SUMMARY | 2024-04-17 12:14 | XMS_ITS | Encounter Summary ---
Author Organization [facility] Facility Care Team Providers Care Clothes Separator Name Role Phone No, Physician Primary Care Provider [phone] Encounter Details Date Type Department Care Team (Latest Contact Info) Description 07/09/2016 Orders Only [facility] CLINCONV Provider, MD Gale [address] [place] [id number] Social History Tobacco Use Types Packs/Day Years Used Date Smoking Tobacco: Never Assessed Comments Unknown Sex and Gender Information Value Date Recorded Sex Assigned at Not on file Legal Sex Female 9:50 AM BOX PRESS OPERATOR Gender Identity Female 03/23/2023 7:13 AM BOX PRESS OPERATOR Sexual Orientation Straight 03/23/2023 7: 13 AM BOX PRESS OPERATOR documented as of this encounter Plan of Treatment Not on file documented as of this encounter Procedures Procedure Name Priority Date/Time Associated Diagnosis Comments SCAN - LABS 07/11/2016 12:00 AM CDT documented in this encounter Results * SCAN - LABS (07/11/2016 12:00 AM CDT) Narrative 07/11/2016 12:00 AM CDT Ordered by an unspecified provider. us Historical Provider Final Res ult documented in this encounter Visit Diagnoses Not on filedocumented in this encounter Care Teams Clothes Separator Relationship Specialty Start Date End Date No, Physician PCP - General 05/14/23 documented as of this encounter
--- OUTSIDE RECORDS SUMMARY | 2024-04-17 12:14 | XMS_ITS | Clinical Summary ---
Author Organization [facility] Address [address] [place] [id number] Care Team Providers Care Computational Sciences Professor Name Role Phone Unavailable Primary Care Provider Unavailabl e Social History Tobacco Use Types Packs/Day Years Used Date Smoking Tobacco: Never Assessed Comments Unknown Sex and Gender Information Value Date Recorded Sex Assigned at Not on file Legal Sex Female 7:08 PM CDT Gender Identity Not on file Sexual Orientation Not on file Plan of Treatment Health Maintenance Due Date Last Done Comments Colorectal Cancer Screening Colonoscopy (10 Years) 1955 Hepatitis C 1971 DTaP, Tdap and Td Vaccines ( 1 - Tdap) 1972 Mammogram Screening 1993 Zoster Vaccines (1 of 2) 2003 Dexa Scan (General) 2018 Pneumococcal Vaccine: 65+ Ye ars (1 of 1 - PCV) 2018 COVID-19 Vaccine (2023-2 5 season) 2023 Influenza Adult (#1) 2023 RSV Immunization or 60+ Years (1 - 1-dose 75+ series) 2028 Meningococcal B Vaccine Aged Out No l onger eligible based on patient's age to complete this topic Meningococcal Vaccine Aged Out No carmel nathan eligible based on patient's age to complete this topic RSV Immunizations Under 20 Months Aged Out No longer eligible based on patient's age to complete this topic
--- OUTSIDE RECORDS SUMMARY | 2024-04-17 12:14 | XMS_ITS | Referral Summary ---
Author Organization [facility] Address [address] [place] [id number] Care Team Providers Care Groundskeeping Maintenance Worker Name Role Phone No, Physician Primary Care Provider [phone] Allergies No known active allergies Medications estradioL [...] on file Legal Sex Female 9:50 AM STRATEGIC BUYER Gender Identity Female 03/23/2023 7:13 AM STRATEGIC BUYER Sexual Orientation Straight 03/23/2023 7: 13 AM STRATEGIC BUYER Last Filed Vital Signs Vital Sign Reading Time Taken Comments Blood Pressure 148/69 05/14/2023 9:51 AM STRATEGIC BUYER Pulse 86 05/14/2023 9:51 AM STRATEGIC BUYER Temperature 36.8 C (98.3 F) 05/14/2023 9:51 AM STRATEGIC BUYER Respiratory Rate 18 05/14/2023 9:51 AM STRATEGIC BUYER Oxygen Saturation 97% 09/24/2017 11: 30 AM CDT Inhaled Oxygen Concentration - - Weight 66.6 kg (146 lb 12.8 oz) 05/14/2023 9:51 AM STRATEGIC BUYER Height 160 cm (5' 3 ) 05/14/2023 9:51 AM STRATEGIC BUYER Body Mass Index 26 05/14/2023 9:51 AM STRATEGIC BUYER Plan of Treatment Not on file Insurance [place] COMMER[place] GENERIC Care Teams Groundskeeping Maintenance Worker Relationship Specialty Start Date End Date No, Physician PCP - General 05/14/23
[2024-04-17 12:17] VITALS: BP 117/56; PULSE 79; RESP 18; TEMP 37.1; O2SAT 95
--- NOTE | 2024-04-17 12:47 | ED.GENADULT ---
HPI - General Adult General Chief complaint: Upper Respiratory Infection Stated complaint: flu and symptoms Source: patient Mode of arrival: ambulatory Limitations: no limitations History of Present Illness HPI narrative: Patient presents for evaluation of sick symptoms for the past 4 days. Symptoms include headache, sinus congestion, nasal drainage, cough, dyspnea on exertion, generalized body aches, fever and chills. No vomiting or diarrhea. Her was recently ill with similar symptoms. His symptoms have improved. She has taken nyquil for her symptoms. She does not smoke. Related Data Home Medications ?Medication ?Instructions ?Recorded ?Confirmed ?Last Taken ?Type multivit with minerals-iron 18 1 tablet PO DAILY 12/16/19 04/02/23 02/08/20 History mg-folic ac 400 mcg-vit K 25 mcg tablet (Adults Multivitamin) cholecalciferol (vitamin D3) 25 25 mcg PO DAILY 09/20/21 04/02/23 Unknown History mcg (1,000 unit) capsule Allergies Allergy/AdvReac Type Severity Reaction Status Date / Time azithromycin AdvReac Unknown STOMACH Verified 04/17/24 12:17 ISSUES Review of Systems Review of Systems: CONSTITUTIONAL: reports fever and chills EYES: Denies visual changes, redness, or discharge. ENT: reports sinus congestion, postnasal drainage, sore throat CARDIOVASCULAR: Denies chest pain, palpitations, or edema. RESPIRATORY: Reports cough and SOB GASTROINTESTINAL: Denies abdominal pain, nausea, vomiting, or diarrhea. GENITOURINARY: Denies dysuria or hematuria. SKIN: Denies rash or itching. MUSCULOSKELETAL: reports generalized body aches NEUROLOGIC: reports headache. Denies numbness, dizziness, or weakness. PSYCHIATRIC: Denies anxiety or depression. [facility] Past Medical History Medical History Pulmonary Mycobacterium avium complex (MAC) infection Atypical pneumonia Pulmonary mycobacterial infection Diagnosed 2001 had been on extensive treatment with triple antibiotics over the course of 2 years. Fatigue JANES (mycobacterium avium-intracellulare) Postsurgical menopause Screening cholesterol level Screening mammogram, encounter for Vitamin D deficiency Surgical History Surgical History H/O left breast biopsy H/O: hysterectomy Family History Family History Father Family history of lung cancer, Onset Age: 80 Family history of malignant neoplasm of brain, Onset Age: 80 Family history of malignant neoplasm of bone, Onset Age: 80 Other Diabetes mellitus Family history of cardiovascular disease Family history of elevated blood lipids Malignant neoplasm of prostate Social History Social History Smoking status: Never smoker Second hand tobacco smoke exposure: No Alcohol intake: current Drinks per week: 3 Substance use: never Substance use type: does not use Lack of Transportation: No Lack of Food: Never True Current Housing: I Have Housing Concerned About Future Housing: No Difficulty Paying Gas/Electric Bills: No Difficulty Paying for Meds: No Currently Unemployed: No Education: Associate Degree Difficulty w/ Childcare or Family Care: No Living arrangements: with family Occupation/Education: occupation Gender identity (if verbalized by the patient): Female Spiritual care concerns: No Exam Narrative: GENERAL: appears acutely ill but nontoxic HEAD: Normocephalic, atraumatic. EYES: PERRLA and EOMI. ENT: Nares clear, no rhinorrhea or epistaxis. Mucous membranes moist. Oropharynx without tonsillar hypertrophy exudate or other lesions. Bilateral TMs pearly nunes nonbulging NECK: Supple. No adenopathy or masses. No carotid bruits or JVD CHEST: Cough present on exam. There is wheezing and rales noted in bilateral lung nguyen HEART: Regular rate and rhythm. No murmur heard. Normal peripheral pulses. ABDOMEN: Soft, nontender, nondistended, normal active bowel sounds. EXTREMITIES: Normal range of motion. No edema. SKIN: Warm, dry, no rash. NEURO: No focal deficits. Alert and oriented x3. PSYCH: Normal mood and affect. Course Course Emergency Course: This is a 68-year-old female who presented for evaluation of sick symptoms. Chest x-ray without evidence of acute cardiopulmonary abnormality. She did test positive for influenza. She was given steroids while here and a nebulizer treatment. Symptoms mildly improved. Saturations are normal on room air. She feels well enough to go home. Will discharge with Tamiflu, prednisone, albuterol. Increase hydration. Fbzj-ock-hoklcht agents for symptom management. Follow up with primary provider. Go to the ER for worsening symptoms. Patient in agreement with plan of care. Level of Care: Express Care Visit Vital Signs Vital signs: Vital Signs Temperature 37.1 C 04/17/24 12:17 Pulse Rate 79 04/17/24 12:17 Respiratory Rate 18 04/17/24 12:17 Blood Pressure 117/56 L 04/17/24 12:17 Pulse Oximetry 95 04/17/24 12:17 Oxygen Delivery Room Air 04/17/24 12:17 Temperature 37.1 C 04/17/24 12:17 Pulse Rate 85 04/17/24 13:22 Respiratory Rate 18 04/17/24 13:22 Blood Pressure 117/56 L 04/17/24 12:17 Pulse Oximetry 97 04/17/24 13:22 Oxygen Delivery Room Air 04/17/24 12:17 Medical Decision Making Vital Signs Vital Signs: Vital Signs Temperature 37.1 C 04/17/24 12:17 Pulse Rate 79 04/17/24 12:17 Respiratory Rate 18 04/17/24 12:17 Blood Pressure 117/56 L 04/17/24 12:17 Pulse Oximetry 95 04/17/24 12:17 Oxygen Delivery Room Air 04/17/24 12:17 Temperature 37.1 C 04/17/24 12:17 Pulse Rate 85 04/17/24 13:22 Respiratory Rate 18 04/17/24 13:22 Blood Pressure 117/56 L 04/17/24 12:17 Pulse Oximetry 97 04/17/24 13:22 Oxygen Delivery Room Air 04/17/24 12:17 Lab Data Labs: Lab Results 04/17/24 04/17/24 Range/Units 13:08 13:12 POC Influenza A Ag Positive (Negative) POC Influenza B Ag Negative (Negative) POC SARS CoV-2 Ag Negative (Negative) POC Grp A Strep Screen Negative (Negative) Imaging Data Radiologist's impression: EXAMINATION: XR chest 2V DATE: 04/17/2024 12:53 INDICATION: 5 days of cough TECHNIQUE: PA and lateral views of the chest were obtained. COMPARISON: Chest radiograph dated 08/03/[address] dated 08/13/2022 FINDINGS: Stable appearance of mild opacities and bronchiectatic changes in the anterior right lower and left mid to lower lung zones, likely sequela of chronic infection. No new airspace opacities, pulmonary edema, pleural effusion or pneumothorax. Heart size is normal. Surgical clip along side the lateral left chest wall where there are changes of a prior thoracotomy. IMPRESSION: 1. Stable appearance of mild opacities and bronchiectatic changes in the anterior left mid to lower and right lower lung zones which are likely sequela of chronic infection. No evident acute cardiopulmonary disease. Discharge Plan Discharge Clinical Impression: Influenza Patient Disposition: Home, Self-Care Condition: Stable Instructions: Antibiotic Form, Influenza (ED) Patient Language: Danish Prescriptions: New oseltamivir [Tamiflu] 75 mg capsule 75 mg PO Q12H 5 Days Qty: 10 0RF prednisone 50 mg tablet 50 mg PO DAILY Qty: 5 0RF albuterol sulfate [Ventolin HFA] 90 mcg/actuation HFA aerosol inhaler 2 puff inhalation QID PRN (Reason: shortness of breath or wheezing) Qty: 8.5 0RF No Action albuterol sulfate [Ventolin HFA] 90 mcg/actuation HFA aerosol inhaler 2 puff INHALATION QID PRN (Reason: Shortness Of Breath) Qty: 8.5 3RF (DME) B[employer] MDI Spacer Spacer See Rx Instructions .Route Qty: 1 0RF Rx Instructions: As directed QID albuterol sulfate 2.5 mg/0.5 mL solution for nebulization 2.5 mg inhalation BID 30 Days Qty: 60 5RF Rx Instructions: Use twice a day in the nebulizer to clear secretions. cholecalciferol (vitamin D3) 25 mcg (1,000 unit) capsule 25 mcg PO DAILY Adults Multivitamin 18 mg iron-400 mcg-25 mcg Tablet 1 tablet PO DAILY sodium chloride 3 % solution for nebulization 4 ml inhalation BID Qty: 240 5RF estradiol 0.075 mg/24 hr patch weekly 1 patch transdermal WEEKLY Qty: 16 2RF Follow-up/Referrals: Cheyenne Greer MD [Primary Care Provider] - Time of Disposition: 13:28
[2024-04-17] MEDS: methylPREDNISolone SOD SUCC 125 MG VIAL IM (13:01)
[2024-04-17] MEDS: IPRATROPIUM 0.5 MG/ALBUTEROL SULFATE 2.5 MG AMPUL.NEB 3 ML INHALATION (13:01)
[2024-04-17 13:06] VITALS: PULSE 81; RESP 20; O2SAT 98
[2024-04-17 13:09] LABS: EDSTREPNEGPOS1 Negative (Negative)
[2024-04-17 13:13] LABS: EDCOVIDSCREEN Negative (Negative)
[2024-04-17 13:14] LABS: EDINFLUASCREEN Positive (Negative); EDINFLUBSCREEN Negative (Negative)
[2024-04-17 13:22] VITALS: PULSE 85; RESP 18; O2SAT 97
== END 2024-04-17 13:40 | disposition home or self-care (01) ==
PROVIDERS: Emergency Provider Nurse Practitioner; PCP Family Medicine
DX: J10.1 Influenza due to other identified influenza virus with other respiratory manifestations (principal); Z20.822 Contact with and (suspected) exposure to COVID-19; E55.9 Vitamin D deficiency, unspecified
CPT/HCPCS: 71046; 87081; 87426; 87804; 87880; 94640; 99213; G0463; J2919

== ENCOUNTER 2024-05-05 17:05 | Outpatient (CLI) | payer BC, OTHER, SELFPAY ==
[2024-05-05 17:24] LABS: Basophils Absolute Auto 0.1 K/mm3 (0.0-0.1); Basophils Percent Auto 0.4 % (0.2-1.2); Eosinophils Absolute Auto 0.2 K/mm3 (0-0.3); Eosinophils Percent Auto 1.5 % (0-4.4); Hemoglobin 12.1 g/dL (12.0-15.0); Immature Granulocyte Absolute 0.08 K/mm3 (0.00-0.031); Immature Granulocyte Percent A 0.6 % (0-0.5); Lymphocytes Absolute Auto 2.31 K/mm3 (0.9-3.2); Lymphocytes Percent Auto 18.6 % (18.3-44.2); Mean Corpuscular HGB Conc 32.7 g/dl (32-36); Mean Corpuscular Hemoglobin 29.2 pg (26-34); Mean Corpuscular Volume 89.4 fl (80-100); Monocytes Absolute Auto 0.6 K/mm3 (0.1-0.6); Monocytes Percent Auto 5.1 % (2.6-8.5); Neutrophils Absolute Auto 9.1 K/mm3 (1.3-6.7); Neutrophils Percent Auto 73.8 % (45.5-73.1); Platelet Count Result 349 k/mm3 (150-375); Red Blood Count 4.14 M/mm3 (4.2-5.4); Red Cell Distribution Width 13.3 % (11.5-14.5); White Blood Count 12.4 K/mm3 (4.5-10.0)
[2024-05-05 17:31] LABS: Anion Gap 8 mmol/L (4-12); Blood Urea Nitrogen 16 mg/dL (7-17); Calcium 8.9 mg/dL (8.4-10.2); Carbon Dioxide 27 mmol/L (22-30); Chloride 102 mmol/L (98-107); Estimated Glomerular Filt Rate > 60; Glucose 104 mg/dL (65-110); Lactic Acid Reflex 1.3 mmol/L (0.7-2.0); Potassium 3.9 mmol/L (3.4-5.0); Sodium 137 mmol/L (137-145)
--- OUTSIDE RECORDS SUMMARY | 2024-05-05 18:54 | XMS_ITS | Referral Summary ---
Author Organization [facility] Address [address] [place] [id number] Care Team Providers Care Straddle Bug Driver Name Role Phone No, Physician Primary Care Provider [phone] Allergies No known active allergies Medications estradioL [...] on file Legal Sex Female 9:50 AM INK BLENDER Gender Identity Female 03/23/2023 7:13 AM INK BLENDER Sexual Orientation Straight 03/23/2023 7: 13 AM INK BLENDER Last Filed Vital Signs Vital Sign Reading Time Taken Comments Blood Pressure 148/69 05/14/2023 9:51 AM INK BLENDER Pulse 86 05/14/2023 9:51 AM INK BLENDER Temperature 36.8 C (98.3 F) 05/14/2023 9:51 AM INK BLENDER Respiratory Rate 18 05/14/2023 9:51 AM INK BLENDER Oxygen Saturation 97% 09/24/2017 11: 30 AM CDT Inhaled Oxygen Concentration - - Weight 66.6 kg (146 lb 12.8 oz) 024 9:51 AM INK BLENDER Height 160 cm (5' 3 ) 05/14/2023 9:51 AM INK BLENDER Body Mass Index 26 05/14/2023 9:51 AM INK BLENDER Plan of Treatment Not on file [place] Care Teams Straddle Bug Driver Relationship Specialty Start Date End Date No, Physician PCP - General 05/14/23
--- OUTSIDE RECORDS SUMMARY | 2024-05-05 18:54 | XMS_ITS | Clinical Summary ---
Author Organization [facility] Address [address] [place] [phone] Care Team Providers Care Boat Operator Name Role Phone No, Physician Primary Care Provider [phone] Allergies No known active allergies Medications estradioL [...] on file Legal Sex Female 9:50 AM PATIENT REPRESENTATIVE Gender Identity Female 03/23/2023 7:13 AM PATIENT REPRESENTATIVE Sexual Orientation Straight 03/23/2023 7: 13 AM PATIENT REPRESENTATIVE Obstetrics History Last Filed Vital Signs Vital Sign Reading Time Taken Comments Blood Pressure 148/69 05/14/2023 9:51 AM PATIENT REPRESENTATIVE Pulse 86 05/14/2023 9:51 AM PATIENT REPRESENTATIVE Temperature 36.8 C (98.3 F) 05/14/2023 9:51 AM PATIENT REPRESENTATIVE Respiratory Rate 18 05/14/2023 9:51 AM PATIENT REPRESENTATIVE Oxygen Saturation 97% 09/24/2017 11: 30 AM CDT Inhaled Oxygen Concentration - - Weight 66.6 kg (146 lb 12.8 oz) 05/14/2023 9:51 AM PATIENT REPRESENTATIVE Height 160 cm (5' 3 ) 05/14/2023 9:51 AM PATIENT REPRESENTATIVE Body Mass Index 26 05/14/2023 9:51 AM PATIENT REPRESENTATIVE Plan of Treatment Health Maintenance Due Date [...] Pneumococcal vaccine 65+ (3 of 3 - PCV20 or PCV21) 12/07/2023 12/06/2018, 04/26/2008, 12/01/2002 DTaP/Tdap/Td Vaccine (3 - Td or Tdap) 12/06/2028 12/06/2018, 03/19/2012 Zoster Vaccine Completed 03/02/2019, 11/10, 11/05/[address] [place] [address] CHOICE [facility] [place] [facility] [place] [address] [facility] [place] COMMER[place] GENER[place] Care Teams Boat Operator Relationship Specialty Start Date End Date No, Physician PCP - General 05/14/23
--- OUTSIDE RECORDS SUMMARY | 2024-05-05 18:54 | XMS_ITS | Encounter Summary ---
Author Organization [facility] Facility Care Team Providers Care Metal Lather Name Role Phone No, Physician Primary Care Provider [phone] Encounter Details Date Type Department Care Team (Latest Contact Info) Description 07/13/2016 Orders Only [facility] CLINCONV Provider, MD Gale [address] [place] [id number] Social History Tobacco Use Types Packs/Day Years Used Date Smoking Tobacco: Never Assessed Comments Unknown Sex and Gender Information Value Date Recorded Sex Assigned at Not on file Legal Sex Female 9:50 AM AVIATION PROGRAM MANAGER Gender Identity Female 03/23/2023 7:13 AM AVIATION PROGRAM MANAGER Sexual Orientation Straight 03/23/2023 7: 13 AM AVIATION PROGRAM MANAGER documented as of this encounter Plan of [...] on filedocumented in this encounter Care Teams Metal Lather Relationship Specialty Start Date End Date No, Physician PCP - General 05/14/23 documented as of this encounter
--- OUTSIDE RECORDS SUMMARY | 2024-05-05 18:54 | XMS_ITS | Clinical Summary ---
Author Organization [facility] Address [address] [place] [address] Phone Care Team Providers Care Line Service Attendant Name Role Phone Unavailable Primary Care Provider [...] Most Recently Relevant to Health Maintenance Insurance [facility] [place] [id number] Member Subscriber Plan / Payer (Ef fective 2021-Present) Name:Cristi Abraham Relation to Subscriber:Self Name:Cristi Abraham Payer ID:[id number] (NAIC) Type:HMO Address: [facility] [id number] [place] [id number]
--- OUTSIDE RECORDS SUMMARY | 2024-05-05 18:54 | XMS_ITS | Clinical Summary ---
Author Organization [facility] Address [address] [place] [address] Care Team Providers Care Ornament Setter Name Role Phone Unavailable Primary Care Provider [...]
--- OUTSIDE RECORDS SUMMARY | 2024-05-05 18:54 | XMS_ITS | Encounter Summary ---
Author Organization [facility] Facility Care Team Providers Care Bin Packer Name Role Phone No, Physician Primary Care Provider [phone] Encounter Details Date Type Department Care Team (Latest Contact Info) Description 07/09/2016 Orders Only [facility] CLINCONV Provider, MD Gale [address] [place] [address] Social History Tobacco Use Types Packs/Day Years Used Date Smoking Tobacco: Never Assessed Comments Unknown Sex and Gender Information Value Date Recorded Sex Assigned at Not on file Legal Sex Female 9:50 AM CARDIOVASCULAR SONOGRAPHER Gender Identity Female 03/23/2023 7:13 AM CARDIOVASCULAR SONOGRAPHER Sexual Orientation Straight 03/23/2023 7: 13 AM CARDIOVASCULAR SONOGRAPHER documented as of this encounter Plan of [...] on filedocumented in this encounter Care Teams Bin Packer Relationship Specialty Start Date End Date No, Physician PCP - General 05/14/23 documented as of this encounter
--- OUTSIDE RECORDS SUMMARY | 2024-05-05 18:54 | XMS_ITS | Encounter Summary ---
Author Organization [facility] Facility Care Team Providers Care Hotel Baggage Handler Name Role Phone No, Physician Primary Care Provider Encounter Details Date Type Department Care Team (Latest Contact Info) Description 05/22/2016 Orders Only [facility] CLINCONV ProviderGale MD [address] [place] [address] Social History Tobacco Use Types Packs/Day Years Used Date Smoking Tobacco: Never Assessed Comments Unknown Sex and Gender Information Value Date Recorded Sex Assigned at Not on file Legal Sex Female 9:50 AM HITCHER Gender Identity Female 03/23/2023 7:13 AM HITCHER Sexual Orientation Straight 03/23/2023 7: 13 AM HITCHER documented as of this encounter Plan of [...] on filedocumented in this encounter Care Teams Hotel Baggage Handler Relationship Specialty Start Date End Date No, Physician PCP - General 05/14/23 documented as of this encounter
== END 2024-05-05 17:06 | disposition home or self-care (01) ==
LOC: ANHLAB 17:07
PROVIDERS: PCP Family Medicine; Visit Provider Internal Medicine Critical Care Medicine
DX: J18.9 Pneumonia, unspecified organism (principal)
CPT/HCPCS: 36415; 80048; 83605; 85025; 87015; 87070; 87102; 87116; 87205; 87206

== ENCOUNTER 2024-05-15 07:54 | Outpatient (CLI) | payer BC, OTHER, SELFPAY ==
--- OUTSIDE RECORDS SUMMARY | 2024-05-15 08:01 | XMS_ITS | Encounter Summary ---
Author Organization [facility] Facility Care Team Providers Care Clinical Account Executive Name Role Phone No, Physician Primary Care Provider [phone] Encounter Details Date Type Department Care Team (Latest Contact Info) Description 05/22/2016 Orders Only [facility] CLINCONV ProviderGale MD [address] [place] [address] Social History Tobacco Use Types Packs/Day Years Used Date Smoking Tobacco: Never Assessed Comments Unknown Sex and Gender Information Value Date Recorded Sex Assigned at Not on file Legal Sex Female 9:50 AM SUPERINTENDENT STORAGE AREA Gender Identity Female 03/23/2023 7:13 AM SUPERINTENDENT STORAGE AREA Sexual Orientation Straight 03/23/2023 7: 13 AM SUPERINTENDENT STORAGE AREA documented as of this encounter Plan of [...] on filedocumented in this encounter Care Teams Clinical Account Executive Relationship Specialty Start Date End Date No, Physician PCP - General 05/14/23 documented as of this encounter
--- OUTSIDE RECORDS SUMMARY | 2024-05-15 08:02 | XMS_ITS | Referral Summary ---
Author Organization [facility] Address [address] [place] [address] Care Team Providers Care Net Solutions Architect Name Role Phone No, Physician Primary Care Provider [phone] Allergies No known active allergies Medications estradioL [...] Noted Date Diagnosed Date Pulmonary mycobacterial infection 05/21/2023 Social History Tobacco Use Types Packs/Day Years Used Date Smoking Tobacco: Never Tobacco Cessation:Counseling Given: Not Answered Personal Safety Answer Date Recorded Getting School Help Needed Not on file 03/19 Comments Unknown Sex and Gender Information Value Date Recorded Sex Assigned at Not on file Legal Sex Female 9:50 AM MILK POWDER GRINDER Gender Identity Female 03/23/2023 7:13 AM MILK POWDER GRINDER Sexual Orientation Straight 03/23/2023 7: 13 AM MILK POWDER GRINDER Last Filed Vital Signs Vital Sign Reading Time Taken Comments Blood Pressure 148/69 05/14/2023 9:51 AM MILK POWDER GRINDER Pulse 86 05/14/2023 9:51 AM MILK POWDER GRINDER Temperature 36.8 C (98.3 F) 05/14/2023 9:51 AM MILK POWDER GRINDER Respiratory Rate 18 05/14/2023 9:51 AM MILK POWDER GRINDER Oxygen Saturation 97% 09/24/2017 11: 30 AM CDT Inhaled Oxygen Concentration - - Weight 66.6 kg (146 lb 12.8 oz) 05/14/2023 9:51 AM MILK POWDER GRINDER Height 160 cm (5' 3 ) 05/14/2023 9:51 AM MILK POWDER GRINDER Body Mass Index 26 05/14/2023 9:51 AM MILK POWDER GRINDER Plan of Treatment Not on file [place] COMM[place] Care Teams Net Solutions Architect Relationship Specialty Start Date End Date No, Physician PCP - General 05/14/23
--- OUTSIDE RECORDS SUMMARY | 2024-05-15 08:02 | XMS_ITS | Clinical Summary ---
Author Organization [facility] Address [address] [place] [address] Care Team Providers Care Circulator Name Role Phone Unavailable Primary Care Provider [...]
--- OUTSIDE RECORDS SUMMARY | 2024-05-15 08:02 | XMS_ITS | Encounter Summary ---
Author Organization [facility] Facility Care Team Providers Care Electric Motor Repairing Supervisor Name Role Phone No, Physician Primary Care Provider Encounter Details Date Type Department Care Team (Latest Contact Info) Description 07/13/2016 Orders Only [facility] CLINCONV Provider, MD Gale [address] [place] [address] Social History Tobacco Use Types Packs/Day Years Used Date Smoking Tobacco: Never Assessed Comments Unknown Sex and Gender Information Value Date Recorded Sex Assigned at Not on file Legal Sex Female 9:50 AM POLE MAKER Gender Identity Female 03/23/2023 7:13 AM POLE MAKER Sexual Orientation Straight 03/23/2023 7: 13 AM POLE MAKER documented as of this encounter Plan of [...] on filedocumented in this encounter Care Teams Electric Motor Repairing Supervisor Relationship Specialty Start Date End Date No, Physician PCP - General 05/14/23 documented as of this encounter
--- OUTSIDE RECORDS SUMMARY | 2024-05-15 08:02 | XMS_ITS | Clinical Summary ---
Author Organization [facility] Address [address] [place] [address] Phone Care Team Providers Care Christmas Tree Farm Manager Name Role Phone Unavailable Primary Care Provider [...] Colonography Q 5 years 1998 PNEUMOCOCCAL VACCINE 50+ YEA RS (2 of 2 - PCV) [...] Most Recently Relevant to Health Maintenance Insurance [employer] [facility] [place] [id number] Member Subscriber Plan / Payer (Ef fective 2021-Present) Name:Cristi Abraham Relation to Subscriber:Self Name:Cristi Abraham Payer ID:[id number] (NAIC) Type:HMO Address: [facility] [id number] [place] [id number]
--- OUTSIDE RECORDS SUMMARY | 2024-05-15 08:02 | XMS_ITS | Encounter Summary ---
Author Organization [facility] Facility Care Team Providers Care Anatomic Pathologist Name Role Phone No, Physician Primary Care Provider [phone] Encounter Details Date Type Department Care Team (Latest Contact Info) Description 07/09/2016 Orders Only [facility] CLINCONV Provider, MD Gale [address] [place] [address] Social History Tobacco Use Types Packs/Day Years Used Date Smoking Tobacco: Never Assessed Comments Unknown Sex and Gender Information Value Date Recorded Sex Assigned at Not on file Legal Sex Female 9:50 AM COMPUTER INFORMATION SYSTEMS PROFESSOR Gender Identity Female 03/23/2023 7:13 AM COMPUTER INFORMATION SYSTEMS PROFESSOR Sexual Orientation Straight 03/23/2023 7: 13 AM COMPUTER INFORMATION SYSTEMS PROFESSOR documented as of this encounter Plan of [...] on filedocumented in this encounter Care Teams Anatomic Pathologist Relationship Specialty Start Date End Date No, Physician PCP - General 05/14/23 documented as of this encounter
--- OUTSIDE RECORDS SUMMARY | 2024-05-15 08:02 | XMS_ITS | Clinical Summary ---
Author Organization [facility] Address [address] [place] [phone] Care Team Providers Care Laborer Adjustable Steel Joist Name Role Phone No, Physician Primary Care Provider [phone] Allergies No known active allergies Medications estradioL [...] on file Legal Sex Female 9:50 AM LABORATORY MILLER Gender Identity Female 03/23/2023 7:13 AM LABORATORY MILLER Sexual Orientation Straight 03/23/2023 7: 13 AM LABORATORY MILLER Obstetrics History Last Filed Vital Signs Vital Sign Reading Time Taken Comments Blood Pressure 148/69 05/14/2023 9:51 AM LABORATORY MILLER Pulse 86 05/14/2023 9:51 AM LABORATORY MILLER Temperature 36.8 C (98.3 F) 05/14/2023 9:51 AM LABORATORY MILLER Respiratory Rate 18 05/14/2023 9:51 AM LABORATORY MILLER Oxygen Saturation 97% 09/24/2017 11: 30 AM CDT Inhaled Oxygen Concentration - - Weight 66.6 kg (146 lb 12.8 oz) 05/14/2023 9:51 AM LABORATORY MILLER Height 160 cm (5' 3 ) 05/14/2023 9:51 AM LABORATORY MILLER Body Mass Index 26 05/14/2023 9:51 AM LABORATORY MILLER Plan of Treatment Health Maintenance Due Date [...] Vaccine Completed 03/02/2019, 11/10, 11/05/[address] [place] [address] [place] [facility] [place] Care Teams Laborer Adjustable Steel Joist Relationship Specialty Start Date End Date No, Physician PCP - General 05/14/23
== END 2024-05-15 07:55 | disposition home or self-care (01) ==
LOC: ANHLAB 07:55
PROVIDERS: PCP Family Medicine; Visit Provider Internal Medicine Critical Care Medicine
DX: J18.9 Pneumonia, unspecified organism (principal)
CPT/HCPCS: 87070; 87205

== ENCOUNTER 2024-05-16 11:39 | Outpatient (CLI) | payer BC, OTHER, SELFPAY ==
--- OUTSIDE RECORDS SUMMARY | 2024-05-16 11:43 | XMS_ITS | Clinical Summary ---
Author Organization [facility] Address [address] [place] [phone] Care Team Providers Care Loan Servicing Representative Name Role Phone No, Physician Primary Care Provider [phone] Allergies No known active allergies Medications estradioL [...] on file Legal Sex Female 9:50 AM TOWER HELPER Gender Identity Female 03/23/2023 7:13 AM TOWER HELPER Sexual Orientation Straight 03/23/2023 7: 13 AM TOWER HELPER Obstetrics History Last Filed Vital Signs Vital Sign Reading Time Taken Comments Blood Pressure 148/69 05/14/2023 9:51 AM TOWER HELPER Pulse 86 05/14/2023 9:51 AM TOWER HELPER Temperature 36.8 C (98.3 F) 05/14/2023 9:51 AM TOWER HELPER Respiratory Rate 18 05/14/2023 9:51 AM TOWER HELPER Oxygen Saturation 97% 09/24/2017 11: 30 AM CDT Inhaled Oxygen Concentration - - Weight 66.6 kg (146 lb 12.8 oz) 05/14/2023 9:51 AM TOWER HELPER Height 160 cm (5' 3 ) 05/14/2023 9:51 AM TOWER HELPER Body Mass Index 26 05/14/2023 9:51 AM TOWER HELPER Plan of Treatment Health Maintenance Due Date [...] Vaccine Completed 03/02/2019, 11/10, 11/05/[address] [place] [address] CHOICE [place] [facility] [place] MEDICARE COMMERCIAL GENERIC Care Teams Loan Servicing Representative Relationship Specialty Start Date End Date No, Physician PCP - General 05/14/23
--- OUTSIDE RECORDS SUMMARY | 2024-05-16 11:43 | XMS_ITS | Encounter Summary ---
Author Organization [facility] Facility Care Team Providers Care Files Supervisor Name Role Phone No, Physician Primary Care Provider [phone] Encounter Details Date Type Department Care Team (Latest Contact Info) Description 07/09/2016 Orders Only [facility] Provider, MD Gale [address] [place] [address] Social History Tobacco Use Types Packs/Day Years Used Date Smoking Tobacco: Never Assessed Comments Unknown Sex and Gender Information Value Date Recorded Sex Assigned at Not on file Legal Sex Female 9:50 AM HOLE DIGGER TRUCK 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
--- OUTSIDE RECORDS SUMMARY | 2024-05-16 11:43 | XMS_ITS | Encounter Summary ---
Author Organization [facility] Facility Care Team Providers Care Physically Impaired Teacher Name Role Phone No, Physician Primary Care Provider [phone] Encounter Details Date Type Department Care Team (Latest Contact Info) Description 07/13/2016 Orders Only [facility] CLINCONV Provider, MD Gale [address] [place] [address] Social History Tobacco Use Types Packs/Day Years Used Date Smoking Tobacco: Never Assessed Comments Unknown Sex and Gender Information Value Date Recorded Sex Assigned at Not on file Legal Sex Female 9:50 AM COOK FISHING VESSEL Gender Identity Female 03/23/2023 7:13 AM COOK FISHING VESSEL Sexual Orientation Straight 03/23/2023 7: 13 AM COOK FISHING VESSEL documented as of this encounter Plan of [...] on filedocumented in this encounter Care Teams Physically Impaired Teacher Relationship Specialty Start Date End Date No, Physician PCP - General 05/14/23 documented as of this encounter
--- OUTSIDE RECORDS SUMMARY | 2024-05-16 11:43 | XMS_ITS | Referral Summary ---
Author Organization [facility] Address [address] [place] [address] Care Team Providers Care Pharmacy District Manager Name Role Phone No, Physician Primary Care Provider [phone] Allergies No known active allergies Medications estradioL [...] on file Legal Sex Female 9:50 AM DIRECTOR OF RECRUITMENT Gender Identity Female 03/23/2023 7:13 AM DIRECTOR OF RECRUITMENT Sexual Orientation Straight 03/23/2023 7: 13 AM DIRECTOR OF RECRUITMENT Last Filed Vital Signs Vital Sign Reading Time Taken Comments Blood Pressure 148/69 05/14/2023 9:51 AM DIRECTOR OF RECRUITMENT Pulse 86 05/14/2023 9:51 AM DIRECTOR OF RECRUITMENT Temperature 36.8 C (98.3 F) 05/14/2023 9:51 AM DIRECTOR OF RECRUITMENT Respiratory Rate 18 05/14/2023 9:51 AM DIRECTOR OF RECRUITMENT Oxygen Saturation 97% 09/24/2017 11: 30 AM CDT Inhaled Oxygen Concentration - - Weight 66.6 kg (146 lb 12.8 oz) 05/14/2023 9:51 AM DIRECTOR OF RECRUITMENT Height 160 cm (5' 3 ) 05/14/2023 9:51 AM DIRECTOR OF RECRUITMENT Body Mass Index 26 05/14/2023 9:51 AM DIRECTOR OF RECRUITMENT Plan of Treatment Not on file [place] COMM[place] GENER[place] Care Teams Pharmacy District Manager Relationship Specialty Start Date End Date No, Physician PCP - General 05/14/23
--- OUTSIDE RECORDS SUMMARY | 2024-05-16 11:43 | XMS_ITS | Clinical Summary ---
Author Organization [facility] Address [address] [place] [address] Care Team Providers Care Director Of Emergency Nursing Name Role Phone Unavailable Primary Care Provider [...]
--- OUTSIDE RECORDS SUMMARY | 2024-05-16 11:43 | XMS_ITS | Clinical Summary ---
Author Organization [facility] Address [address] [place] [address] Phone Care Team Providers Care Pupil Personnel Services Director Name Role Phone Unavailable Primary Care Provider [...] Most Recently Relevant to Health Maintenance Insurance [email or web address] [facility] Whitepages [id number] Member Subscriber Plan / Payer (Ef fective 2021-Present) Name:Cristi Abraham Relation to Subscriber:Self Name:Cristi Abraham Payer ID:[id number] (NAIC) Type:HMO Address: [facility] [id number] [place] [id number]
--- OUTSIDE RECORDS SUMMARY | 2024-05-16 11:43 | XMS_ITS | Encounter Summary ---
Author Organization [facility] Facility Care Team Providers Care Public Information Officer Name Role Phone No, Physician Primary Care Provider [phone] Encounter Details Date Type Department Care Team (Latest Contact Info) Description 05/22/2016 Orders Only [facility] CLINCONV ProviderGale MD [address] [place] [address] Social History Tobacco Use Types Packs/Day Years Used Date Smoking Tobacco: Never Assessed Comments Unknown Sex and Gender Information Value Date Recorded Sex Assigned at Not on file Legal Sex Female 9:50 AM OUTBOARD MOTOR TESTER Gender Identity Female 03/23/2023 7:13 AM OUTBOARD MOTOR TESTER Sexual Orientation Straight 03/23/2023 7: 13 AM OUTBOARD MOTOR TESTER documented as of this encounter Plan of [...] on filedocumented in this encounter Care Teams Public Information Officer Relationship Specialty Start Date End Date No, Physician PCP - General 05/14/23 documented as of this encounter
== END 2024-05-16 11:40 | disposition home or self-care (01) ==
LOC: ANHLAB 11:42
PROVIDERS: PCP Family Medicine; Visit Provider Internal Medicine Critical Care Medicine
DX: A31.0 Pulmonary mycobacterial infection (principal)
CPT/HCPCS: 87015; 87070; 87102; 87116; 87205; 87206

== ENCOUNTER 2024-05-26 09:15 | Outpatient (CLI) | payer BC, OTHER, SELFPAY ==
--- NOTE | ~2024-05-26 | CT_ITS ---
CT Scan of the Chest without Contrast: Clinical Indication: Postinfluenza pneumonia Technique: Contiguous sections were acquired throughout the chest without intravenous contrast. Dose reduction technique was used on this scan by utilizing automated exposure control and iterative recon struction technique. The dose-length product (DLP) was 139.55 mGy-cm. COMPARISON: 08/13/2022 Findings: There is no evidence of any significant mediastinal, hilar or axillary lymphadenopathy. The mediastin al soft tissues appear normal. There is no evidence of pleural or pericardial effusion. There is worsening patchy consolidation at the right middle lobe and lingula, with underlying chronic bronchiectatic changes at the lung bases. Additional focal area of consolidation present in the righ t lower lobe. There are minimal scattered tree-in-bud opacities in these regions as well. Images through the upper abdomen reveal no abnormalities. Impression: Worsening patchy areas of consolidation the lung bases, with underlying bronchiectatic change and min imal tree-in-bud opacities. Findings are compatible with acute pneumonia superimposed upon underlying chronic small airways infection. Reviewed, dictated and finalized at [facility]. Impression: Worsening patchy areas of consolidation the lung bases, with underlying bronchi ectatic change and minimal tree-in-bud opacities. Findings are compatible with acute pneumonia superimposed upon underlying chronic small airways infection.
== END 2024-05-26 09:16 | disposition home or self-care (01) ==
LOC: MICIMG 09:16
PROVIDERS: PCP Family Medicine; Visit Provider Internal Medicine Critical Care Medicine
DX: J18.9 Pneumonia, unspecified organism (principal)
CPT/HCPCS: 71250

== ENCOUNTER 2024-07-27 10:46 | Outpatient (CLI) | payer BC, OTHER, SELFPAY ==
--- NOTE | 2024-07-27 | ECG_ITS ---
Test Date: 2024-07-27 11:24:12 Measurements Intervals [place] Rate: 57 P: 55 WA: 132 QRS: 53 QRSD: 89 T: 56 QT: 419 QTc: 408 Interpretive Statements SINUS BRADYCARDIA LOW QRS VOLTAGE IN PRECORDIAL LEADS [QRS DEFLECTION < 1.0 mV IN CHEST LEADS] No previous ECG available for comparison Electronically Signed On 07-27-2024 11:26:55 CDT by Roland oPrras M.D.
[2024-07-27 11:12] LABS: Basophils Absolute Auto 0.1 K/mm3 (0.0-0.1); Basophils Percent Auto 0.8 % (0.2-1.2); Eosinophils Absolute Auto 0.2 K/mm3 (0-0.3); Eosinophils Percent Auto 3.5 % (0-4.4); Hematocrit 39.7 % (37.0-47.0); Hemoglobin 12.9 g/dL (12.0-15.0); Immature Granulocyte Absolute 0.02 K/mm3 (0.00-0.031); Immature Granulocyte Percent A 0.3 % (0-0.5); Lymphocytes Absolute Auto 1.79 K/mm3 (0.9-3.2); Lymphocytes Percent Auto 27.6 % (18.3-44.2); Mean Corpuscular HGB Conc 32.5 g/dl (32-36); Mean Corpuscular Hemoglobin 28.9 pg (26-34); Mean Corpuscular Volume 88.8 fl (80-100); Mean Platelet Volume 9.3 fl (7.4-10.4); Monocytes Absolute Auto 0.4 K/mm3 (0.1-0.6); Monocytes Percent Auto 5.4 % (2.6-8.5); Neutrophils Absolute Auto 4.1 K/mm3 (1.3-6.7); Neutrophils Percent Auto 62.4 % (45.5-73.1); Platelet Count Result 283 k/mm3 (150-375); Red Blood Count 4.47 M/mm3 (4.2-5.4); Red Cell Distribution Width 13.6 % (11.5-14.5); White Blood Count 6.5 K/mm3 (4.5-10.0)
[2024-07-27 11:28] LABS: Alanine Aminotransferase 19 U/L (6-35); Albumin Level 4.2 g/dL (3.5-5.1); Alkaline Phosphatase 56 U/L (38-126); Anion Gap 4 mmol/L (4-12); Aspartate Amino Transferase 33 U/L (14-36); Bilirubin,Total 0.6 mg/dL (0.2-1.3); Blood Urea Nitrogen 14 mg/dL (7-17); Calcium 8.8 mg/dL (8.4-10.2); Carbon Dioxide 28 mmol/L (22-30); Chloride 104 mmol/L (98-107); Estimated Glomerular Filt Rate > 60; Glucose 87 mg/dL (65-110); Potassium 4.4 mmol/L (3.4-5.0); Sodium 136 mmol/L (137-145)
--- OUTSIDE RECORDS SUMMARY | 2024-07-27 11:29 | XMS_ITS | Encounter Summary ---
Author Organization [facility] Facility Care Team Providers Care Outsole Cutter Machine Name Role Phone No, Physician Primary Care Provider [phone] Encounter Details Date Type Department Care Team (Latest Contact Info) Description 07/09/2016 Orders Only [facility] CLINCONV Provider, MD Gale [address] [place] [address] Social History Tobacco Use Types Packs/Day Years Used Date Smoking Tobacco: Never Assessed Comments Unknown Sex and Gender Information Value Date Recorded Sex Assigned at Not on file Legal Sex Female 9:50 AM REHABILITATION PROGRAM COORDINATOR Gender Identity Female 03/23/2023 7:13 AM REHABILITATION PROGRAM COORDINATOR Sexual Orientation Straight 03/23/2023 7: 13 AM REHABILITATION PROGRAM COORDINATOR documented as of this encounter Plan of [...] on filedocumented in this encounter Care Teams Outsole Cutter Machine Relationship Specialty Start Date End Date No, Physician PCP - General 05/14/23 documented as of this encounter
--- OUTSIDE RECORDS SUMMARY | 2024-07-27 11:29 | XMS_ITS | Encounter Summary ---
Author Organization [facility] Facility Care Team Providers Care Distribution Estimator Name Role Phone No, Physician Primary Care Provider [phone] Encounter Details Date Type Department Care Team (Latest Contact Info) Description 05/22/2016 Orders Only [facility] CLINCONV ProviderGale MD [address] [place] [address] Social History Tobacco Use Types Packs/Day Years Used Date Smoking Tobacco: Never Assessed Comments Unknown Sex and Gender Information Value Date Recorded Sex Assigned at Not on file Legal Sex Female 9:50 AM DIRECTOR ORGANIZATIONAL Gender Identity Female 03/23/2023 7:13 AM DIRECTOR ORGANIZATIONAL Sexual Orientation Straight 03/23/2023 7: 13 AM DIRECTOR ORGANIZATIONAL documented as of this encounter Plan of [...] on filedocumented in this encounter Care Teams Distribution Estimator Relationship Specialty Start Date End Date No, Physician PCP - General 05/14/23 documented as of this encounter
--- OUTSIDE RECORDS SUMMARY | 2024-07-27 11:30 | XMS_ITS | Encounter Summary ---
Author Organization [facility] Facility Care Team Providers Care Baby Attendant Name Role Phone No, Physician Primary Care Provider Encounter Details Date Type Department Care Team (Latest Contact Info) Description 07/13/2016 Orders Only [facility] CLINCONV Provider, MD Gale [address] [place] [address] Social History Tobacco Use Types Packs/Day Years Used Date Smoking Tobacco: Never Assessed Comments Unknown Sex and Gender Information Value Date Recorded Sex Assigned at Not on file Legal Sex Female 9:50 AM GUEST ROOM ATTENDANT Gender Identity Female 03/23/2023 7:13 AM GUEST ROOM ATTENDANT Sexual Orientation Straight 03/23/2023 7: 13 AM GUEST ROOM ATTENDANT documented as of this encounter Plan of [...] on filedocumented in this encounter Care Teams Baby Attendant Relationship Specialty Start Date End Date No, Physician PCP - General 05/14/23 documented as of this encounter
--- OUTSIDE RECORDS SUMMARY | 2024-07-27 11:30 | XMS_ITS | Referral Summary ---
Author Organization [facility] Address [address] [place] [phone] Care Team Providers Care Guest Service Supervisor Name Role Phone No, Physician Primary Care Provider [phone] Encounters Date Type Department Care Team Description 07/16/2024 Orders Only [facility] Infectious Diseases [address] [place] [phone] Starla Jones NP Pulmonary mycobacterial infection (HCC) (Primary Dx) 07/16/2024 Orders Only [facility] Infectious Diseases [address] [place] [phone] Starla Jones NP Pulmonary mycobacterial infection (HCC) (Primary Dx) 06/19/2024 8:56 AM CDT - 06/19/2024 11:59 PM CDT Hospital Encounter [facility] Radiology [facility] [address] [place] [address] Diagnosis unknown Discharge Disposition: Discharge to home or self care 06/09/2024 9:40 AM CDT Office Visit [facility] Infectious Diseases [address] [place] [phone] Starla Jones NP Pulmonary mycobacterial infection (HCC) (Primary Dx); Encounter for screening examination for sexually transmitted disease 05/05/2024 Orders Only [facility] Scanning, Provider from Last 3 Months Allergies No known active allergies Medications estradioL (CLIMARA) 0.075 mg/[address] 1 patch on the skin once a week 4 Active sodium chloride 3 % nebulizer solution Take 4 mL by nebulization 2 (two) times a day Active albuterol 2.5 mg /3 mL (0.083 %) nebulizer solution Take 3 mL (2.5 mg total) by nebulization 2 (two) times a day Active Active Problems Problem Noted Date Diagnosed Date Encounter for screening exam ination for sexually transmitted disease 06/26/2024 Pulmonary mycobacterial infection 05/21/2023 Assessment & Plan (06/09/2024 10:06 AM CDT): - At the patients last visit AFB sputum cultures were ordered as well as PFTs, CT Chest, CBC, CMP Immunizations Immunization Administration Dates Next Due Pneumococcal Conjugate Pcv21 06/09/2024 Social History Tobacco Use Types Packs/Day Years Used Date Smoking Tobacco: Never Tobacco Cessation:Counseling Given: Not Answered Comments Unknown Sex and Gender Information Value Date Recorded Sex Assigned at Not on file Legal Sex Female 9:50 AM REVENUE ACCOUNTING MANAGER Gender Identity Female 03/23/2023 7:13 AM REVENUE ACCOUNTING MANAGER Sexual Orientation Straight 03/23/2023 7: 13 AM REVENUE ACCOUNTING MANAGER Last Filed Vital Signs Vital Sign Reading Time Taken Comments Blood Pressure 125/68 06/09/2024 9:48 AM CDT Pulse 72 06/09/2024 9:48 AM CDT Temperature 36.7 C (98.1 F) 06/09/2024 9:48 AM CDT Respiratory Rate 18 05/14/2023 9:51 AM REVENUE ACCOUNTING MANAGER Oxygen Saturation 95% 06/09/2024 9:48 AM CDT Inhaled Oxygen Concentration - - Weight 67.1 kg (148 lb) 06/09/2024 9:48 AM CDT Height 160 cm (5' 2.99 ) 06/09/2024 9:48 AM CDT Body Mass Index 26.22 06/09/2024 9:48 AM CDT Plan of Treatment Not on file Procedures Procedure Name Priority Date/Time Associated Diagnosis Comments CT BODY OUTSIDE CONSULT Routine 06/19/2024 8:56 AM CDT Diagnosis unknown SCAN - LABS 05/05/2024 from Last 3 Months Results * CT Body Outside Consult (06/19/2024 8:56 AM CDT) Anatomical Region Laterality Modality Body N/A Computed Tomogra phy 06/19/2024 9:37 AM CDT Impressions 06/19/2024 9:43 AM CDT Interval worsening of nontuberculous mycobacterial infection, with new left upper lobe nodular consolidation, right middle lobe mucus plugging, and tree-in-bud nodularity in the left lower lobe. The findings, conclusions and recommendations within this report do not replace the initial findings, conclusions and recommendations made at the facility where the study was performed based upon the imaging and clinical condition at that time. Comparison with the prior report and clinical history is necessary. The provided images may or may not represent the [place] source data set and thus may contain changes that may lower the accuracy of this second-opinion interpretation. Dictated by: Celi Meade MD, PhD The radiology attending physician has personally reviewed this study, and had reviewed and/or edited this written report and agrees with it. Electronically signed by: Bart Shaw M.D. Narrative 06/19/2024 9:43 AM CDT EXAMINATION: RADIOLOGY CONSULTATION ON OUTSIDE IMAGING STUDY STUDY INITIALLY PERFORMED: 05/26/2024 at [facility]. TYPE OF STUDY: Multiple CT images of the chest without contrast are provided at the time of this interpretation. CONTRAST ROUTE: No contrast was administered. The protocol was adequate to address the clinical question. The outside final report was not available at the time of this second opinion interpretation. 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 FINDINGS: CHEST: No supraclavicular, axillary, mediastinal, or hilar lymphadenopathy. Heart size is normal without pericardial effusion. Redemonstrated areas of tubular bronchiectasis within the right middle lobe and lingula. New areas of nodular consolidation within the left upper lobe and mucous plugging within the medial aspect of the right middle lobe. Interval development of tree-in-bud nodularity within the left lower lobe. No pleural effusion or pneumothorax. Imaged upper abdomen is unremarkable. No suspicious osseous lesions. Procedure Note Bart Shaw MD - 06/19/2024 EXAMINATION: RADIOLOGY CONSULTATION ON OUTSIDE IMAGING STUDY STUDY INITIALLY PERFORMED: 05/26/2024 at [facility]. TYPE OF STUDY: Multiple CT images of the chest without contrast are provided at the time of this interpretation. CONTRAST ROUTE: No contrast was administered. The protocol was adequate to address the clinical question. The outside final report was not available at the time of this second opinion interpretation. 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 FINDINGS: CHEST: No supraclavicular, axillary, mediastinal, or hilar lymphadenopathy. Heart size is normal without pericardial effusion. Redemonstrated areas of tubular bronchiectasis within the right middle lobe and lingula. New areas of nodular consolidation within the left upper lobe and mucous plugging within the medial aspect of the right middle lobe. Interval development of tree-in-bud nodularity within the left lower lobe. No pleural effusion or pneumothorax. Imaged upper abdomen is unremarkable. No suspicious osseous lesions. IMPRESSION: Interval worsening of nontuberculous mycobacterial infection, with new left upper lobe nodular consolidation, right middle lobe mucus plugging, and tree-in-bud nodularity in the left lower lobe. The findings, conclusions and recommendations within this report do not replace the initial findings, conclusions and recommendations made at the facility where the study was performed based upon the imaging and clinical condition at that time. Comparison with the prior report and clinical history is necessary. The provided images may or may not represent the [place] source data set and thus may contain changes that may lower the accuracy of this second-opinion interpretation. Dictated by: Celi Meade MD, PhD The radiology attending physician has personally reviewed this study, and had reviewed and/or edited this written report and agrees with it. Electronically signed by: Bart Shaw M.D. us Josué Bhakta MD IMG CT PROCEDURES Final Resu lt * SCAN - LABS (05/05/2024) us Provider Scanning Final Result from Last 3 Months Insurance [place] Care Teams Guest Service Supervisor Relationship Specialty Start Date End Date No, Physician PCP - General 05/14/23
--- OUTSIDE RECORDS SUMMARY | 2024-07-27 11:30 | XMS_ITS | Clinical Summary ---
Author Organization [facility] Address [address] [place] [address] Care Team Providers Care Custom Clothier Name Role Phone Unavailable Primary Care Provider [...] 1 - Tdap) 1972 Mammogram Screening 1993 Pneumococcal Vaccine: 50+ Ye ars (1 of 1 - PCV) 2003 Zoster Vaccines (1 of 2) 2003 Dexa Scan (General) 2018 COVID-19 Vaccine ( - 2023-2 5 season) 2023 RSV Immunization or 60+ Years (1 [...]
--- OUTSIDE RECORDS SUMMARY | 2024-07-27 11:30 | XMS_ITS | Clinical Summary ---
Author Organization [facility] Address [address] [place] [phone] Phone Care Team Providers Care Academic Manager Name Role Phone Unavailable Primary Care [...] (11/27/2021) Anatomical Region Laterality Modality Breast Left Mammography us Abstract Provider MAMMO ORDERABLES Edited Result - Final from Last 3 Months or Most Recently Relevant to Health Maintenance Insurance [employer] Payment [facility] [employer] [id number] Member Subscriber Plan / Payer (Ef fective 2021-Present) Name:Cristi Abraham Relation to Subscriber:Self Name:Cristi Abraham Payer ID:[id number] (NAIC) Type:HMO Address: [facility] [id number] [place] [id number]
--- OUTSIDE RECORDS SUMMARY | 2024-07-27 11:30 | XMS_ITS | Clinical Summary ---
Author Organization [facility] Address [address] [place] [address] Care Team Providers Care Nurse Informatics Educator Name Role Phone No, Physician Primary Care Provider [phone] Allergies No known active allergies Medications estradioL [...] well as PFTs, CT Chest, CBC, CMP Encounters Date Type Department Care Team Description 07/16/2024 Orders Only [facility] Infectious Diseases [address] [place] [phone] Starla Jones NP Pulmonary mycobacterial infection (HCC) (Primary Dx) 07/16/2024 Orders Only [facility] Infectious Diseases [address] [place] [phone] Starla Jones NP Pulmonary mycobacterial infection (HCC) (Primary Dx) 06/19/2024 8:56 AM CDT - 06/19/2024 11:59 PM CDT Hospital Encounter [facility] [address] [place] [address] Diagnosis unknown Discharge Disposition: Discharge to home or self care 06/09/2024 9:40 AM CDT Office Visit [facility] Infectious Diseases [address] [place] [address] [address] [place] [address] Starla Jones NP Pulmonary mycobacterial infection (HCC) (Primary Dx); Encounter for screening examination for sexually transmitted disease 05/05/2024 Orders Only [facility] Scanning, Provider from Last 3 Months Immunizations Immunization Administration Dates Next Due Pneumococcal Conjugate Pcv21 06/09/2024 Social History Tobacco Use Types Packs/Day Years Used Date Smoking Tobacco: Never Tobacco Cessation:Counseling Given: Not Answered Comments Unknown Sex and Gender Information Value Date Recorded Sex Assigned at Not on file Legal Sex Female 9:50 AM RESERVATIONS CLERK Gender Identity Female 03/23/2023 7:13 AM RESERVATIONS CLERK Sexual Orientation Straight 03/23/2023 7: 13 AM RESERVATIONS CLERK Obstetrics History Last Filed Vital Signs Vital Sign Reading Time Taken Comments Blood Pressure 125/68 06/09/2024 9:48 AM CDT Pulse 72 06/09/2024 9:48 AM CDT Temperature 36.7 C (98.1 F) 06/09/2024 9:48 AM CDT Respiratory Rate 18 05/14/2023 9:51 AM RESERVATIONS CLERK Oxygen Saturation 95% 06/09/2024 9:48 AM CDT Inhaled Oxygen Concentration - - Weight 67.1 kg (148 lb) 06/09/2024 9:48 AM CDT Height 160 cm (5' 2.99 ) 06/09/2024 9:48 AM CDT Body Mass Index 26.22 06/09/2024 9:48 AM CDT Plan of Treatment Health Maintenance Due Date Last Done Comments Colon Cancer Screening-Colonoscopy 1955 Depression Screening 1953 Fall Risk Assessment 1955 Hepatitis C Screening 1955 Osteoporosis Screening-Bone Density Scan 1953 Hepatitis B Screening 1971 Well Visit 65+ 2018 Breast Cancer Screening-Mammogram 11/02/2022 022 Covid-19 Vaccine (2023- 5 season) 2023 12/29/2022, 02/16/2021, 05/24/2020, Additional history exists Influenza Vaccine (Season Ended) 2024 12/29/2022, 01/10/2022, 12/23/2020, Additional history exists DTaP/Tdap/Td Vaccine (3 - Td or Tdap) 12/06/2028 12/06/2018, 03/19/2012 Zoster Vaccine Completed 03/02/2019, 11/10, 11/05/2014 Pneumococcal vaccine 65+ Completed 025, 12/06/2018, 04/26/2008, Additional history exists Procedures Procedure Name Priority Date/Time Associated Diagnosis [...] images may or may not represent the [place] source data set and thus may contain [...] IMAGING STUDY STUDY INITIALLY PERFORMED: 05/26/2024 at [facility]. TYPE OF STUDY: Multiple CT images of [...] unremarkable. No suspicious osseous lesions. Procedure Note Short, Bart Velazquez MD - 06/19/2024 EXAMINATION: RADIOLOGY CONSULTATION ON OUTSIDE IMAGING STUDY STUDY INITIALLY PERFORMED: 05/26/2024 at [facility]. TYPE OF STUDY: Multiple CT images of [...] images may or may not represent the [place] source data set and thus may contain changes that may lower the accuracy of this second-opinion interpretation. Dictated by: Celi Meade MD, PhD The radiology attending physician has personally reviewed this study, and had reviewed and/or edited this written report and agrees with it. Electronically signed by: Bart Shaw M.D. Josué Bhakta MD IMG CT PROCEDURES Final Resu lt * SCAN - LABS (05/05/2024) us Provider Scanning Final Result from Last 3 [place] [id number] [place] MED[place]ER[place] GENERIC Care Teams Nurse Informatics Educator Relationship Specialty Start Date End Date No, Physician PCP - General 05/14/23
--- OUTSIDE RECORDS SUMMARY | 2024-07-27 11:30 | XMS_ITS | Encounter Summary ---
Author Organization [facility] Address [address] [place] [address] Phone Care Team Providers Care Specialist Managers Name Role Phone No, Physician Primary Care Provider [phone] Encounter Details Date Type Department Care Team (Late st Contact Info) Description 05/05/2024 Orders Only [facility] Scanning, Provider Social History Tobacco Use Types Packs/Day Years Used Date Smoking Tobacco: Never Comments Unknown Sex and Gender Information Value Date Recorded Sex Assigned at Not on file Legal Sex Female 9:50 AM ORTHOPAEDIC DOCTOR Gender Identity Female 03/23/2023 7:13 AM ORTHOPAEDIC DOCTOR Sexual Orientation Straight 03/23/2023 7: 13 AM ORTHOPAEDIC DOCTOR documented as of this encounter Plan of Treatment Not on file documented as of this encounter Procedures Procedure Name Priority Date/Time Associated Diagnosis Comments SCAN - LABS 05/05/2024 documented in this encounter Results * SCAN - LABS (05/05/2024) us Provider Scanning Final Result documented in this encounter Visit Diagnoses Not on filedocumented in this encounter Care Teams Specialist Managers Relationship Specialty Start Date End Date No, Physician PCP - General 05/14/23 documented as of this encounter
== END 2024-07-27 10:47 | disposition home or self-care (01) ==
LOC: ANHLAB 10:55
PROVIDERS: PCP Family Medicine
DX: A31.0 Pulmonary mycobacterial infection (principal)
CPT/HCPCS: 36415; 80053; 85025; 93005

== ENCOUNTER 2024-09-02 17:09 | Outpatient (CLI) | payer BC, OTHER, SELFPAY ==
[2024-09-02 18:00] LABS: Basophils Absolute Auto 0.1 K/mm3 (0.0-0.1); Eosinophils Absolute Auto 0.4 K/mm3 (0-0.3); Eosinophils Percent Auto 5.4 % (0-4.4); Hemoglobin 12.4 g/dL (12.0-15.0); Immature Granulocyte Absolute 0.02 K/mm3 (0.00-0.031); Immature Granulocyte Percent A 0.3 % (0-0.5); Lymphocytes Absolute Auto 2.39 K/mm3 (0.9-3.2); Lymphocytes Percent Auto 34.9 % (18.3-44.2); Mean Corpuscular HGB Conc 33.5 g/dl (32-36); Mean Corpuscular Hemoglobin 29.4 pg (26-34); Mean Corpuscular Volume 87.7 fl (80-100); Mean Platelet Volume 9.2 fl (7.4-10.4); Monocytes Absolute Auto 0.4 K/mm3 (0.1-0.6); Monocytes Percent Auto 6.1 % (2.6-8.5); Neutrophils Absolute Auto 3.6 K/mm3 (1.3-6.7); Neutrophils Percent Auto 52.3 % (45.5-73.1); Platelet Count Result 288 k/mm3 (150-375); Red Blood Count 4.22 M/mm3 (4.2-5.4); Red Cell Distribution Width 13.2 % (11.5-14.5); White Blood Count 6.8 K/mm3 (4.5-10.0)
[2024-09-02 18:11] LABS: Alanine Aminotransferase 13 U/L (6-35); Albumin Level 3.9 g/dL (3.5-5.1); Alkaline Phosphatase 52 U/L (38-126); Anion Gap 7 mmol/L (4-12); Aspartate Amino Transferase 26 U/L (14-36); Bilirubin,Total 0.1 mg/dL (0.2-1.3); Blood Urea Nitrogen 13 mg/dL (7-17); Calcium 9.3 mg/dL (8.4-10.2); Carbon Dioxide 27 mmol/L (22-30); Chloride 104 mmol/L (98-107); Estimated Glomerular Filt Rate 57; Glucose 100 mg/dL (65-110); Potassium 3.9 mmol/L (3.4-5.0); Sodium 138 mmol/L (137-145); Total Protein 7.1 g/dL (6.3-8.2)
== END 2024-09-02 17:10 | disposition home or self-care (01) ==
PROVIDERS: PCP Family Medicine
DX: A31.0 Pulmonary mycobacterial infection (principal)
CPT/HCPCS: 36415; 80053; 85025

== ENCOUNTER 2024-10-13 12:40 | Emergency (ER) | payer BC, OTHER, SELFPAY ==
--- NOTE | ~2024-10-13 | CT_ITS ---
EXAMINATION: CT brain wo con DATE: 10/13/2024 13:56 INDICATION: Fall TECHNIQUE: Computed tomography (CT) of the head was performed without intravenous contrast. Sagittal and coronal reconstructions were performed. The mA was adjusted according to patient size. Iterative reconstruction technique was employed. The dose-length product was 605.33 mGy-cm. COMPARISON: None FINDINGS: No calvarial fracture. No acute intracranial hemorrhage, acute infarction or abnormal extra axial flu id collection. Likely prominent perivascular space along the inferior aspect of the bilateral basal g anglia, left larger than right. Ventricles are normal and symmetric. No mass/mass effect. Mild mucosa l thickening the paranasal sinuses with change of prior left maxillary sinus antral window procedure. The orbits and mastoid air cells are normal. IMPRESSION: 1. No calvarial fracture or acute intracranial process. Reviewed, dictated and finalized at location A.
--- NOTE | ~2024-10-13 | CT_ITS ---
EXAMINATION: CT cervical spine wo con DATE: 10/13/2024 13:59 INDICATION: Fall TECHNIQUE: Computed tomography (CT) of the cervical spine was performed without intravenous contrast. Automated exposure control and iterative reconstruction technique were employed. The dose-length pro duct was 156.65 mGy-cm. COMPARISON: None FINDINGS: Mild cervicothoracic dextrocurvature. Sagittal alignment is normal. Vertebral body heights are normal . No fracture. Mild osteoarthritis at the atlantoaxial articulation with heterotopic calcification al teja the cruciform ligament posterior to the dens. Moderate disc height loss with severe associated un covertebral osteoarthritis and posterior endplate osteophytes at C5-C6 and C6-C7. The endplate osteop hytes contribute to mild central canal stenosis at both levels. Remaining disc heights are normal wit h additional mild to moderate uncovertebral osteoarthritis and more cephalad cervical spine. Multilev el cervical facet osteoarthritis, severe on the left at C3-C4 and bilaterally at C7-T1 and mild to mo derate at the remaining cervical levels. There is moderate neural foraminal stenosis bilaterally at C 5-C6 and C6-C7 with mild neural from stenosis at the majority the remaining cervical levels. Cervical soft tissues are unremarkable. Mild biapical pleural-parenchymal scarring. IMPRESSION: 1. Moderate cervical spondylosis. No acute osseous adenopathy. Reviewed, dictated and finalized at location A.
--- OUTSIDE RECORDS SUMMARY | 2024-10-13 12:43 | XMS_ITS | Clinical Summary ---
Author Organization [facility] Address [address] [place] [address] Care Team Providers Care Wrong Address Clerk Name Role Phone No, Physician Primary Care Provider [phone] Allergies No known active allergies Medications estradioL [...] 2 (two) times a day 4 Active rifAMPin (RIFADIN) 300 mg capsule Take 2 capsules (600 mg total) by mouth daily 60 capsule 3 5 Active ethambutoL (MYAMBUTOL) 400 mg tabletIndicatio ns:Mycobacterio sis Take 2 tablets (800 mg total) by mouth daily 60 tablet 3 5 Active azithromycin (ZITHROMAX) 500 mg tablet Take 1 tablet (500 mg total) by mouth daily 30 tablet 3 5 Active budesonide-form oteroL (Symbicort) 80-4.5 mcg/actuation inhaler 2 (two) times a day Active Active Problems Problem Noted Date Diagnosed Date Encounter for screening exam ination for sexually transmitted disease 06/26/2024 Pulmonary mycobacterial infection 05/21/2023 Assessment & Plan (06/09/2024 10:06 AM CDT): - At the patients last visit AFB sputum cultures were ordered as well as PFTs, CT Chest, CBC, CMP Encounters Date Type Department Care Team Description 10/13/2024 10:00 AM CDT Office Visit [facility] Infectious [address] [address] Starla Jones NP Pulmonary mycobacterial infection (HCC) (Primary Dx); Encounter for long-term (current) use of antibiotics 10/13/2024 Orders Only [facility] [address] [address] Starla Jones NP Pulmonary mycobacterial infection (HCC) (Primary Dx); Bronchiectasis without complication (HCC) 09/29/2024 Telephone [facility] Infectious Diseases [address] [place] [phone] Veronica Eisenberg Prior Auth 08/31/2024 Orders Only [facility] [address] [address] Starla Jones NP Pulmonary mycobacterial infection (HCC) (Primary Dx) 07/30/2024 Orders Only [address] [address] Starla Jones NP 07/27/2024 Orders Only [facility] Scanning, Provider 07/16/2024 Orders Only [facility] [address] [address] Starla Jones NP Pulmonary mycobacterial infection (HCC) (Primary Dx) 07/16/2024 Orders Only [facility] [address] [address] Starla Jones NP Pulmonary mycobacterial infection (HCC) (Primary Dx) from Last 3 Months Immunizations Immunization Administration Dates Next Due Influenza, Quad, Adjuvantate d, Intramuscular 12/23/2020 Influenza, Quadrivalent, Hig h Dose, Preservative Free, Intrr 01/10/2022,01/01/2020 Influenza, Quadrivalent, Rec ombinant, Egg Free, Preservative Free, Intramuscular 12/29/2022 Influenza, Quadrivalent, Spl it, Intramuscular 01/05/2015 Influenza, Quadrivalent, Spl it, Preservative Free, Intramuscular 01/08/2018,01/07/2018,12/29/2015 Influenza, Trivalent, High D ose, Split, Preservative Free, Intramuscular 01/09/2019 Influenza, Trivalent, IM (MDV) 02/03/2014 Pneumococcal Conjugate PCV 13 12/06/2018 Pneumococcal Conjugate Pcv21 06/09/2024 Pneumococcal Polysaccharide PPV23 04/26/2008, RSV Vaccine, Pref, Recombina nt, Subunit, Adjuvanted, PF, IM (Arexvy) 12/29/2022 Tdap 12/06/2018,03/19/2012 ZOSTER LIVE 11/05/2014 ZOSTER Recombinant 03/02/2019,12/06/2018 Social History Tobacco Use Types Packs/Day Years Used Date Smoking Tobacco: Never Tobacco Cessation:Counseling Given: Not Answered Comments Unknown Sex and Gender Information Value Date Recorded Sex Assigned at Not on file Legal Sex Female 9:50 AM ANESTHESIA DIRECTOR Gender Identity Female 03/23/2023 7:13 AM ANESTHESIA DIRECTOR Sexual Orientation Straight 03/23/2023 7: 13 AM ANESTHESIA DIRECTOR Obstetrics History Last Filed Vital Signs Vital Sign Reading Time Taken Comments Blood Pressure 146/68 10/13/2024 10:08 AM CDT Pulse 73 10/13/2024 10:08 AM CDT Temperature 36.6 C (97.8 F) 10/13/2024 10:08 AM CDT Respiratory Rate 18 05/14/2023 9:51 AM ANESTHESIA DIRECTOR Oxygen Saturation 97% 10/13/2024 10:08 AM CDT Inhaled Oxygen Concentration - - Weight 66.2 kg (146 lb) 10/13/2024 10:08 AM CDT Height 160 cm (5' 2.99) 10/13/2024 10:08 AM CDT Body Mass Index 25.87 10/13/2024 10:08 AM CDT Plan of Treatment Health Maintenance Due Date Last Done Comments Colon Cancer Screening-Colonoscopy 1953 Depression Screening 1953 Fall Risk Assessment 1953 Hepatitis C Screening 1953 Osteoporosis Screening-Bone Density Scan 1953 Hepatitis B Screening 1971 Well Visit 65+ 2018 Breast Cancer Screening-Mammogram 11/02/2022 022 Covid-19 Vaccine (2023- 5 season) 2023 12/29/2022, 02/16/2021, 05/24/2020, Additional history exists Influenza Vaccine (#1) 2024 , 01/10/2022, 12/23/2020, Additional history exists DTaP/Tdap/Td Vaccine (3 - Td or Tdap) 12/06/2028 12/06/2018, 03/19/2012 Zoster Vaccine Completed 03/02/2019, 11/10, 11/05/2014 Pneumococcal vaccine 65+ Completed 025, 12/06/2018, 04/26/2008, Additional history exists [place] Care Teams Wrong Address Clerk Relationship Specialty Start Date End Date No, Physician PCP - General 05/14/23
--- OUTSIDE RECORDS SUMMARY | 2024-10-13 12:43 | XMS_ITS | Clinical Summary ---
Author Organization [facility] Address [address] [place] [address] Phone Care Team Providers Care Site Leasing Agent Name Role Phone Unavailable Primary Care Provider [...] 11:50 AM CDT Height 160 cm (5' 3) 12/12/2021 11:50 AM CDT Body Mass Index [...] SCREENING 11/27/2022 11/27/2021, 11/02 INFLUENZA VACCINE (#1) 2024 02/03/2014 RSV VACCINE (60+ or ) (1 [...] Most Recently Relevant to Health Maintenance Insurance Conjecta [facility] [id number] Member Subscriber Plan / Payer (Ef fective 2021-Present) Name:Cristi Abraham Relation to Subscriber:Self Name:Cristi Abraham Payer ID:[id number] (NAIC) Type:HMO Address: [facility] [address] [place] [id number]
--- OUTSIDE RECORDS SUMMARY | 2024-10-13 12:43 | XMS_ITS | Encounter Summary ---
Author Organization [facility] Facility Care Team Providers Care Clay Products Machine Operator Name Role Phone No, Physician Primary Care Provider [phone] Encounter Details Date Type Department Care Team (Latest Contact Info) Description 05/22/2016 Orders Only [facility] ProviderGale MD [address] [place] [address] Social History Tobacco Use Types Packs/Day Years Used Date Smoking Tobacco: Never Assessed Comments Unknown Sex and Gender Information Value Date Recorded Sex Assigned at Not on file Legal Sex Female 9:50 AM TRAY ROOM WORKER Gender Identity Female 03/23/2023 7:13 AM TRAY ROOM WORKER Sexual Orientation Straight 03/23/2023 7: 13 AM TRAY ROOM WORKER documented as of this encounter Plan of [...] on filedocumented in this encounter Care Teams Clay Products Machine Operator Relationship Specialty Start Date End Date No, Physician PCP - General 05/14/23 documented as of this encounter
--- OUTSIDE RECORDS SUMMARY | 2024-10-13 12:43 | XMS_ITS | Encounter Summary ---
Author Organization [facility] Address [address] [place] [address] Phone Care Team Providers Care Chucking Machine Set Up Operator Name Role Phone No, Physician Primary Care Provider Encounter Details Date Type Department Care Team (Late st Contact Info) Description 05/05/2024 Orders Only [facility] Scanning, Provider Social History Tobacco Use Types Packs/Day Years Used Date Smoking Tobacco: Never Comments Unknown Sex and Gender Information Value Date Recorded Sex Assigned at Not on file Legal Sex Female 9:50 AM AMERICAN INDIAN POLICY SPECIALIST Gender Identity Female 03/23/2023 7:13 AM AMERICAN INDIAN POLICY SPECIALIST Sexual Orientation Straight 03/23/2023 7: 13 AM AMERICAN INDIAN POLICY SPECIALIST documented as of this encounter Plan of Treatment Not on file documented as of this encounter Procedures Procedure Name Priority Date/Time Associated Diagnosis Comments SCAN - LABS 05/05/2024 documented in this encounter Results * SCAN - LABS (05/05/2024) us Provider Scanning Final Result documented in this encounter Visit Diagnoses Not on filedocumented in this encounter Care Teams Chucking Machine Set Up Operator Relationship Specialty Start Date End Date No, Physician PCP - General 05/14/23 documented as of this encounter
--- OUTSIDE RECORDS SUMMARY | 2024-10-13 12:43 | XMS_ITS | Encounter Summary ---
Author Organization [facility] Facility Care Team Providers Care Detective Investigator Name Role Phone No, Physician Primary Care Provider [phone] Encounter Details Date Type Department Care Team (Latest Contact Info) Description 07/13/2016 Orders Only [facility] Provider, MD Gale [address] [place] [address] Social History Tobacco Use Types Packs/Day Years Used Date Smoking Tobacco: Never Assessed Comments Unknown Sex and Gender Information Value Date Recorded Sex Assigned at Not on file Legal Sex Female 9:50 AM FINANCE CONSULTANT Gender Identity Female 03/23/2023 7:13 AM FINANCE CONSULTANT Sexual Orientation Straight 03/23/2023 7: 13 AM FINANCE CONSULTANT documented as of this encounter Plan of [...] on filedocumented in this encounter Care Teams Detective Investigator Relationship Specialty Start Date End Date No, Physician PCP - General 05/14/23 documented as of this encounter
--- OUTSIDE RECORDS SUMMARY | 2024-10-13 12:43 | XMS_ITS | Encounter Summary ---
Author Organization [facility] Facility Care Team Providers Care Latrine Cleaner Name Role Phone No, Physician Primary Care Provider [phone] Encounter Details Date Type Department Care Team (Latest Contact Info) Description 07/09/2016 Orders Only [facility] Provider, MD Gale [address] [place] [address] Social History Tobacco Use Types Packs/Day Years Used Date Smoking Tobacco: Never Assessed Comments Unknown Sex and Gender Information Value Date Recorded Sex Assigned at Not on file Legal Sex Female 9:50 AM CHILD CARE LEAD TEACHER Gender Identity Female 03/23/2023 7:13 AM CHILD CARE LEAD TEACHER Sexual Orientation Straight 03/23/2023 7: 13 AM CHILD CARE LEAD TEACHER documented as of this encounter Plan of [...] on filedocumented in this encounter Care Teams Latrine Cleaner Relationship Specialty Start Date End Date No, Physician PCP - General 05/14/23 documented as of this encounter
--- OUTSIDE RECORDS SUMMARY | 2024-10-13 12:43 | XMS_ITS | Encounter Summary ---
Author Organization [facility] Address [address] [place] [address] Phone Care Team Providers Care Cleaning Attendant Name Role Phone No, Physician Primary Care Provider [phone] Reason for Referral * Cardiology (Routine) - Authorized Specialty Diagnoses / Procedures Referred By Eli t Referred To Contact Diagnoses Pulmonary mycobacterial infection (HCC) Encounter for long-term (current) use of antibiotics Procedures ECG 12 lead Starla Jones NP [address] [place] [address] Phone: tel: fax: [address] [address] Referral ID Status Reason Start Date Expiration Date V isits Requested Visits Authorized [id number] Authorized 10/13/2024 11/12/2025 1 1 Reason for Visit * Reason Comments Follow-up Encounter Details Date Type Department Care Team (Latest Contact Info) Description 10/13/2024 10:00 AM CDT Office Visit [facility] Infectious Diseases [address] [place] [phone] Starla Jones NP [address] [place], [place] [id number] Pulmonary mycobacterial infection (HCC) (Primary Dx); Encounter for long-term (current) use of antibiotics Social History Tobacco Use Types Packs/Day Years Used Date Smoking Tobacco: Never Comments Unknown Sex and Gender Information Value Date Recorded Sex Assigned at Not on file Legal Sex Female 9:50 AM DOCKING PILOT Gender Identity Female 03/23/2023 7:13 AM DOCKING PILOT Sexual Orientation Straight 03/23/2023 7: 13 AM DOCKING PILOT documented as of this encounter Last Filed Vital Signs Vital Sign Reading Time Taken Comments Blood Pressure 146/68 10/13/2024 10:08 AM CDT Pulse 73 10/13/2024 10:08 AM CDT Temperature 36.6 C (97.8 F) 10/13/2024 10:08 AM CDT Respiratory Rate - - Oxygen Saturation 97% 10/13/2024 10:08 AM CDT Inhaled Oxygen Concentration - - Weight 66.2 kg (146 lb) 10/13/2024 10:08 AM CDT Height 160 cm (5' 2.99) 10/13/2024 10:08 AM CDT Body Mass Index 25.87 10/13/2024 10:08 AM CDT documented in this encounter Plan of Treatment Scheduled Orders Name Type Priority Associated Diagnoses Orde r Schedule Comprehensive metabolic panel (Outreach) Lab Routine Pulmonary mycobacterial infection (HCC) Expected: 10/13/2024, Expires: 10/13/2025 CBC with auto differential Lab Routine Pulmonary mycobacterial infection (HCC) Expected: 10/13/2024, Expires: 10/13/2025 ECG 12 lead ECG Routine Pulmonary mycobacterial infection (HCC) Encounter for long-term (current) use of antibiotics 1 Occurrences starting 10/13/2024 until 10/13/2025 documented as of this encounter Visit Diagnoses Diagnosis Pulmonary mycobacterial infection (HCC)- Primary Encounter for long-term (current) use of antibiotics documented in this encounter Historical Medications * This list may reflect changes made after this encounter. budesonide-formote roL (Symbicort) 80-4.5 mcg/actuation inhaler 2 (two) times a day added in this encounter Care Teams Cleaning Attendant Relationship Specialty Start Date End Date No, Physician PCP - General 05/14/23 documented as of this encounter
--- OUTSIDE RECORDS SUMMARY | 2024-10-13 12:43 | XMS_ITS | Encounter Summary ---
Author Organization [facility] Address [address] [place] [address] Phone Care Team Providers Care Manager Cath Lab Name Role Phone No, Physician Primary Care Provider [phone] Encounter Details Date Type Department Care Team (Late st Contact Info) Description 10/13/2024 Orders Only [facility] Infectious Diseases [address] [place] [address] [address] [place] [address] Starla Jones, CRYPTOZOOLOGIST [address] [facility] [address] [place] [address] Pulmonary mycobacterial infection (HCC) (Primary Dx); Bronchiectasis without complication (HCC) Social History Tobacco Use Types Packs/Day Years Used Date Smoking Tobacco: Never Comments Unknown Sex and Gender Information Value Date Recorded Sex Assigned at Not on file Legal Sex Female 9:50 AM GEAR ROOM KEEPER Gender Identity Female 03/23/2023 7:13 AM GEAR ROOM KEEPER Sexual Orientation Straight 03/23/2023 7: 13 AM GEAR ROOM KEEPER documented as of this encounter Plan of Treatment Scheduled Orders Name Type Priority Associated Diagnoses Orde r Schedule Mycobacteriology (AFB) culture and acid-fast stain Sputum Sputum Microbiology Routine Pulmonary mycobacterial infection (HCC) Bronchiectasis without complication (HCC) Expected: 10/20/2024 (Approximate), Expires: 10/13/2025 Mycobacteriology (AFB) culture and acid-fast stain Sputum Sputum Microbiology Routine Pulmonary mycobacterial infection (HCC) Bronchiectasis without complication (HCC) Expected: 10/20/2024 (Approximate), Expires: 10/13/2025 documented as of this encounter Visit Diagnoses Diagnosis Pulmonary mycobacterial infection (HCC)- Primary Bronchiectasis without complication (HCC) documented in this encounter Care Teams Manager Cath Lab Relationship Specialty Start Date End Date No, Physician PCP - General 05/14/23 documented as of this encounter
--- OUTSIDE RECORDS SUMMARY | 2024-10-13 12:43 | XMS_ITS | Referral Summary ---
Author Organization [facility] Address [address] [place] [phone] Care Team Providers Care Assistant Case Manager Name Role Phone No, Physician Primary Care Provider [phone] Encounters Date Type Department Care Team Description 10/13/2024 Orders Only [facility] Infectious Diseases [address] [place] [phone] Starla Jones NP Pulmonary mycobacterial infection (HCC) (Primary Dx); Bronchiectasis without complication (HCC) 10/13/2024 10:00 AM CDT Office Visit [facility] Infectious [address] [phone] Starla Jones NP Pulmonary mycobacterial infection (HCC) (Primary Dx); Encounter for long-term (current) use of antibiotics 09/29/2024 Telephone [facility] Infectious Diseases [address] [place] [phone] Veronica Eisenberg Prior Auth 08/31/2024 Orders Only [facility] Infectious Diseases [address] [place] [phone] Starla Jones NP Pulmonary mycobacterial infection (HCC) (Primary Dx) 07/30/2024 Orders Only [facility] Infectious [address] [phone] Starla Jones NP 07/27/2024 Orders Only [facility] INFECTIOUS DISEASE Scanning, Provider 07/16/2024 Orders Only [facility] Infectious Diseases [address] [place] [phone] Starla Jones NP Pulmonary mycobacterial infection (HCC) (Primary Dx) 07/16/2024 Orders Only [facility] Infectious Diseases [address] [place] [phone] Starla Jones NP Pulmonary mycobacterial infection (HCC) (Primary Dx) from Last 3 Months Allergies No known [...] CMP Immunizations Immunization Administration Dates Next Due Influenza, [...] on file Legal Sex Female 9:50 AM BATHING SUIT MAKER Gender Identity Female 03/23/2023 7:13 AM BATHING SUIT MAKER Sexual Orientation Straight 03/23/2023 7: 13 AM BATHING SUIT MAKER Last Filed Vital Signs Vital Sign Reading Time Taken Comments Blood Pressure 146/68 10/13/2024 10:08 AM CDT Pulse 73 10/13/2024 10:08 AM CDT Temperature 36.6 C (97.8 F) 10/13/2024 10:08 AM CDT Respiratory Rate 18 05/14/2023 9:51 AM BATHING SUIT MAKER Oxygen Saturation 97% 10/13/2024 10:08 AM CDT Inhaled Oxygen Concentration - - Weight 66.2 kg (146 lb) 10/13/2024 10:08 AM CDT Height 160 cm (5' 2.99) 10/13/2024 10:08 AM CDT Body Mass Index 25.87 10/13/2024 10:08 AM CDT Plan of Treatment Not on file Insurance [place] GENER[place] Care Teams Assistant Case Manager Relationship Specialty Start Date End Date No, Physician PCP - General 05/14/23
--- OUTSIDE RECORDS SUMMARY | 2024-10-13 12:43 | XMS_ITS | Clinical Summary ---
Author Organization [facility] Address [address] [place] [address] Care Team Providers Care Ct Scan Technician Name Role Phone Unavailable Primary Care Provider [...]
[2024-10-13 12:50] VITALS: BP 155/75; PULSE 64; RESP 16; O2SAT 99
--- OUTSIDE RECORDS SUMMARY | 2024-10-13 14:12 | XMS_ITS | Encounter Summary ---
Author Organization [facility] Address [address] [place] [address] Phone Care Team Providers Care Education Paraprofessional Name Role Phone No, Physician Primary Care Provider [phone] Encounter Details Date Type Department Care Team (Late st Contact Info) Description 10/13/2024 Orders Only [facility] Infectious Diseases [address] [place] [address] [address] [place] [phone] Starla Jones, TRAINING ASSOCIATE [address] [facility] [address] [place] [address] Pulmonary mycobacterial infection (HCC) (Primary Dx); Bronchiectasis without complication (HCC) Social History Tobacco Use Types Packs/Day Years Used Date Smoking Tobacco: Never Comments Unknown Sex and Gender Information Value Date Recorded Sex Assigned at Not on file Legal Sex Female 9:50 AM MED SURG NURSE Gender Identity Female 03/23/2023 7:13 AM MED SURG NURSE Sexual Orientation Straight 03/23/2023 7: 13 AM MED SURG NURSE documented as of this encounter Plan of [...] (HCC) documented in this encounter Care Teams Education Paraprofessional Relationship Specialty Start Date End Date No, Physician PCP - General 05/14/23 documented as of this encounter
--- OUTSIDE RECORDS SUMMARY | 2024-10-13 14:12 | XMS_ITS | Encounter Summary ---
Author Organization [facility] Address [address] [place] [address] Phone Care Team Providers Care Supervisor Shuttle Preparation Name Role Phone No, Physician Primary Care Provider [phone] Reason for Referral * Cardiology (Routine) - Authorized Specialty Diagnoses / Procedures Referred By Eli t Referred To Contact Diagnoses Pulmonary mycobacterial infection (HCC) Encounter for long-term (current) use of antibiotics Procedures ECG 12 lead Starla Jones NP [address] [place] [address] Phone: tel: fax: [address] [address] Referral ID Status Reason Start Date Expiration Date V isits Requested Visits Authorized [id number] Authorized 10/13/2024 11/12/2025 1 1 Reason for Visit * Reason Comments Follow-up Encounter Details Date Type Department Care Team (Latest Contact Info) Description 10/13/2024 10:00 AM CDT Office Visit [facility] Infectious Diseases [address] [place] [phone] Starla Jones NP [address] [place], [place] [phone] Pulmonary mycobacterial infection (HCC) (Primary Dx); Encounter for long-term (current) use of antibiotics Social History Tobacco Use Types Packs/Day Years Used Date Smoking Tobacco: Never Comments Unknown Sex and Gender Information Value Date Recorded Sex Assigned at Not on file Legal Sex Female 9:50 AM EXTRAS CASTING DIRECTOR Gender Identity Female 03/23/2023 7:13 AM EXTRAS CASTING DIRECTOR Sexual Orientation Straight 03/23/2023 7: 13 AM EXTRAS CASTING DIRECTOR documented as of this encounter Last Filed [...] day added in this encounter Care Teams Supervisor Shuttle Preparation Relationship Specialty Start Date End Date No, Physician PCP - General 05/14/23 documented as of this encounter
--- OUTSIDE RECORDS SUMMARY | 2024-10-13 14:12 | XMS_ITS | Clinical Summary ---
Author Organization [facility] Address [address] [place] [phone] Care Team Providers Care Kindergarten Teacher Name Role Phone No, Physician Primary Care Provider [phone] Allergies No known active allergies Medications estradioL [...] Description 10/13/2024 10:00 AM CDT Office Visit [facility] Infectious [address] [phone] Starla Jones NP Pulmonary mycobacterial infection (HCC) (Primary Dx); Encounter for long-term (current) use of antibiotics 10/13/2024 Orders Only [facility] Infectious [address] [phone] Starla Jones NP Pulmonary mycobacterial infection (HCC) (Primary Dx); Bronchiectasis without complication (HCC) 09/29/2024 Telephone [facility] Infectious Diseases [address] [place] [phone] Veronica Eisenberg Prior Auth 08/31/2024 Orders Only [facility] Infectious [address] [phone] Starla Jones NP Pulmonary mycobacterial infection (HCC) (Primary Dx) 07/30/2024 Orders Only [address] [phone] Starla Jones NP 07/27/2024 Orders Only [facility] INFECTIOUS DISEASE Scanning, Provider 07/16/2024 Orders Only [facility] Infectious [address] [phone] Starla Jones NP Pulmonary mycobacterial infection (HCC) (Primary Dx) 07/16/2024 Orders Only [facility] Infectious [address] [phone] Starla Jones NP Pulmonary mycobacterial infection (HCC) [...] on file Legal Sex Female 9:50 AM INDUSTRIAL SEAMSTRESS Gender Identity Female 03/23/2023 7:13 AM INDUSTRIAL SEAMSTRESS Sexual Orientation Straight 03/23/2023 7: 13 AM INDUSTRIAL SEAMSTRESS Obstetrics History Last Filed Vital Signs Vital Sign Reading Time Taken Comments Blood Pressure 146/68 10/13/2024 10:08 AM CDT Pulse 73 10/13/2024 10:08 AM CDT Temperature 36.6 C (97.8 F) 10/13/2024 10:08 AM CDT Respiratory Rate 18 05/14/2023 9:51 AM INDUSTRIAL SEAMSTRESS Oxygen Saturation 97% 10/13/2024 10:08 AM CDT [...] [place] MED[place] COMMER[place] GENERIC Care Teams Kindergarten Teacher Relationship Specialty Start Date End Date No, Physician PCP - General 05/14/23
--- OUTSIDE RECORDS SUMMARY | 2024-10-13 14:12 | XMS_ITS | Encounter Summary ---
Author Organization [facility] Address [address] [place] [address] Phone Care Team Providers Care Chemical Blender Name Role Phone No, Physician Primary Care Provider [phone] Encounter Details Date Type Department Care Team (Late st Contact Info) Description 05/05/2024 Orders Only [facility] INFECTIOUS DISEASE Scanning, Provider Social History Tobacco Use Types Packs/Day Years Used Date Smoking Tobacco: Never Comments Unknown Sex and Gender Information Value Date Recorded Sex Assigned at Not on file Legal Sex Female 9:50 AM BUTCHER ALL ROUND Gender Identity Female 03/23/2023 7:13 AM BUTCHER ALL ROUND Sexual Orientation Straight 03/23/2023 7: 13 AM BUTCHER ALL ROUND documented as of this encounter Plan of Treatment Not on file documented as of this encounter Procedures Procedure Name Priority Date/Time Associated Diagnosis Comments SCAN - LABS 05/05/2024 documented in this encounter Results * SCAN - LABS (05/05/2024) us Provider Scanning Final Result documented in this encounter Visit Diagnoses Not on filedocumented in this encounter Care Teams Chemical Blender Relationship Specialty Start Date End Date No, Physician PCP - General 05/14/23 documented as of this encounter
--- OUTSIDE RECORDS SUMMARY | 2024-10-13 14:12 | XMS_ITS | Clinical Summary ---
Author Organization [facility] Address [address] [place] [address] Phone Care Team Providers Care Concrete Laborer Name Role Phone Unavailable Primary Care Provider [...] Most Recently Relevant to Health Maintenance Insurance [employer] [facility] [employer] [id number] Member Subscriber Plan / Payer (Ef fective 2021-Present) Name:Cristi Abraham Relation to Subscriber:Self Name:Cristi Abraham Payer ID:[id number] (NAIC) Type:HMO Address: [facility] [address] [place] [id number]
--- OUTSIDE RECORDS SUMMARY | 2024-10-13 14:12 | XMS_ITS | Encounter Summary ---
Author Organization [facility] Facility Care Team Providers Care Cloth Tester Quality Name Role Phone No, Physician Primary Care Provider [phone] Encounter Details Date Type Department Care Team (Latest Contact Info) Description 05/22/2016 Orders Only [facility] ProviderGale MD [address] [place] [address] Social History Tobacco Use Types Packs/Day Years Used Date Smoking Tobacco: Never Assessed Comments Unknown Sex and Gender Information Value Date Recorded Sex Assigned at Not on file Legal Sex Female 9:50 AM CARE TECHNICIAN Gender Identity Female 03/23/2023 7:13 AM CARE TECHNICIAN Sexual Orientation Straight 03/23/2023 7: 13 AM CARE TECHNICIAN documented as of this encounter Plan of [...] on filedocumented in this encounter Care Teams Cloth Tester Quality Relationship Specialty Start Date End Date No, Physician PCP - General 05/14/23 documented as of this encounter
--- OUTSIDE RECORDS SUMMARY | 2024-10-13 14:12 | XMS_ITS | Referral Summary ---
Author Organization [facility] Address [address] [place] [address] Care Team Providers Care Property Appraiser Name Role Phone No, Physician Primary Care Provider [phone] Encounters Date Type Department Care Team Description 10/13/2024 Orders Only [facility] Infectious Diseases [address] [place] [phone] Starla Jones NP Pulmonary mycobacterial infection (HCC) (Primary Dx); Bronchiectasis without complication (HCC) 10/13/2024 10:00 AM CDT Office Visit [facility] Infectious [address] [phone] Starla Jones NP Pulmonary mycobacterial infection (HCC) (Primary Dx); Encounter for long-term (current) use of antibiotics 09/29/2024 Telephone [facility] Infectious Diseases [address] [place] [phone] Veronica Eisenberg Prior Auth 08/31/2024 Orders Only [facility] Infectious Diseases [address] [place] [phone] Starla Jones NP Pulmonary mycobacterial infection (HCC) (Primary Dx) 07/30/2024 Orders Only [facility] Infectious [address] [phone] Starla Jones NP 07/27/2024 Orders Only [facility] INFECTIOUS DISEASE Scanning, Provider 07/16/2024 Orders Only [facility] Infectious Diseases [address] [place] [phone] Starla Jones NP Pulmonary mycobacterial infection (HCC) (Primary Dx) 07/16/2024 Orders Only [facility] Infectious Diseases [address] [place] [phone] Starla Jones NP Pulmonary mycobacterial infection (HCC) [...] on file Legal Sex Female 9:50 AM MACARONI MAKER Gender Identity Female 03/23/2023 7:13 AM MACARONI MAKER Sexual Orientation Straight 03/23/2023 7: 13 AM MACARONI MAKER Last Filed Vital Signs Vital Sign Reading Time Taken Comments Blood Pressure 146/68 10/13/2024 10:08 AM CDT Pulse 73 10/13/2024 10:08 AM CDT Temperature 36.6 C (97.8 F) 10/13/2024 10:08 AM CDT Respiratory Rate 18 05/14/2023 9:51 AM MACARONI MAKER Oxygen Saturation 97% 10/13/2024 10:08 AM CDT Inhaled Oxygen Concentration - - Weight 66.2 kg (146 lb) 10/13/2024 10:08 AM CDT Height 160 cm (5' 2.99) 10/13/2024 10:08 AM CDT Body Mass Index 25.87 10/13/2024 10:08 AM CDT Plan of Treatment Not on file [place] Care Teams Property Appraiser Relationship Specialty Start Date End Date No, Physician PCP - General 05/14/23
--- OUTSIDE RECORDS SUMMARY | 2024-10-13 14:12 | XMS_ITS | Encounter Summary ---
Author Organization [facility] Facility Care Team Providers Care Clamp Truck Driver Name Role Phone No, Physician Primary Care Provider Encounter Details Date Type Department Care Team (Latest Contact Info) Description 07/13/2016 Orders Only [facility] Provider, MD Gale [address] [place] [address] Social History Tobacco Use Types Packs/Day Years Used Date Smoking Tobacco: Never Assessed Comments Unknown Sex and Gender Information Value Date Recorded Sex Assigned at Not on file Legal Sex Female 9:50 AM MEDICAL CHIEF TECHNICIAN Gender Identity Female 03/23/2023 7:13 AM MEDICAL CHIEF TECHNICIAN Sexual Orientation Straight 03/23/2023 7: 13 AM MEDICAL CHIEF TECHNICIAN documented as of this encounter Plan [...] on filedocumented in this encounter Care Teams Clamp Truck Driver Relationship Specialty Start Date End Date No, Physician PCP - General 05/14/23 documented as of this encounter
--- OUTSIDE RECORDS SUMMARY | 2024-10-13 14:12 | XMS_ITS | Encounter Summary ---
Author Organization [facility] Facility Care Team Providers Care Nurses Superintendent Name Role Phone No, Physician Primary Care Provider [phone] Encounter Details Date Type Department Care Team (Latest Contact Info) Description 07/09/2016 Orders Only [facility] Provider, MD Gale [address] [place] [address] Social History Tobacco Use Types Packs/Day Years Used Date Smoking Tobacco: Never Assessed Comments Unknown Sex and Gender Information Value Date Recorded Sex Assigned at Not on file Legal Sex Female 9:50 AM RV PARTS AND SERVICE DIRECTOR Gender Identity Female 03/23/2023 7:13 AM RV PARTS AND SERVICE DIRECTOR Sexual Orientation Straight 03/23/2023 7: 13 AM RV PARTS AND SERVICE DIRECTOR documented as of this encounter Plan of [...] on filedocumented in this encounter Care Teams Nurses Superintendent Relationship Specialty Start Date End Date No, Physician PCP - General 05/14/23 documented as of this encounter
--- OUTSIDE RECORDS SUMMARY | 2024-10-13 14:12 | XMS_ITS | Clinical Summary ---
Author Organization [facility] Address [address] [place] [address] Care Team Providers Care Oil And Gas Specialist Name Role Phone Unavailable Primary Care Provider [...]
--- NOTE | 2024-10-13 15:23 | ED_ITS ---
HPI - General Adult General Chief complaint: Wound/Laceration Stated complaint: fall this AM, lac to chin Time Seen by Provider: 10/13/24 13:17 History of Present Illness HPI narrative: This is a 69-year-old female presenting after ground level fall. She tripped getting out of her car striking her chin on the ground. She has a 2 cm laceration. She has some pain to her neck and shoulders. No use of blood thinners. No headache, slurred speech weakness any extremity chest pain diff iculty breathing or abdominal pain. 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 Fatigue JANES (mycobacterium avium-intracellulare) Postsurgical menopause Screening cholesterol level Screening mammogram, encounter for Vitamin D deficiency Surgical History Surgical History H/O left breast biopsy H/O: hysterectomy Family History Family History Father Family history of lung cancer, Onset Age: 80 Family history of malignant neoplasm of brain, Onset Age: 80 Family history of malignant neoplasm of bone, Onset Age: 80 Other Diabetes mellitus Family history of cardiovascular disease Family history of elevated blood lipids Malignant neoplasm of prostate Social History Social History Smoking status: Never smoker Second hand tobacco smoke exposure: No Alcohol intake: current Drinks per week: 3 Substance use: never Substance use type: does not use Lack of Transportation: No Lack of Food: Never True Current Housing: I Have Housing Concerned About Future Housing: No Difficulty Paying Gas/Electric Bills: No Difficulty Paying for Meds: No Currently Unemployed: No Education: Associate Degree Difficulty w/ Childcare or Family Care: No Living arrangements: with family Occupation/Education: occupation Gender identity (if verbalized by the patient): Female Spiritual care concerns: No Exam Narrative: APPEARANCE: No apparent distress. Head: 2 cm laceration to the bottom of the chin EYES: EOMI, NOSE: Atraumatic NECK: Trachea midline, no midline cervical tenderness RESPIRATORY: No increased rate of breathing CARDIOVASCULAR: RRR, ABDOMINAL: Non-distended MUSCULOSKELETAl: No obvious deformities NEURO: Alert. Cranial nerves 2-12 grossly intact. Sensation light touch, motor function cerebellar function intact for 4 extremities. Gait exam was normal. SKIN:: Warm, dry. Normal color PSYCHIATRIC: Normal affect Course Vital Signs Vital signs: Vital Signs Pulse Rate 64 10/13/24 12:50 Respiratory Rate 16 10/13/24 12:50 Blood Pressure 155/75 H 10/13/24 12:50 Pulse Oximetry 99 10/13/24 12:50 Pulse Rate 64 10/13/24 12:50 Respiratory Rate 16 10/13/24 12:50 Blood Pressure 155/75 H 10/13/24 12:50 Pulse Oximetry 99 10/13/24 12:50 Procedures Laceration Laceration 1: Date: 10/13/24 Site: face Size (cm): 2 Description: linear Depth: simple, single layer Local Anesthetic: bupivacaine 0.25% Amount of anesthesia used (mL): 4 Pre-repair: irrigated extensively ====== Skin Level ====== Skin layer closed with: prolene Size (cm): 5-0 Number of sutures: 3 Technique: simple, interrupted ====== Subcutaneous Layer ====== ====== Muscle Layer ====== ====== Tendon Layer ====== Medical Decision Making MDM Narrative Medical decision making narrative: -Course: 69-year-old female presenting after a trip and fall with a laceration to her chin the laceration was repaired. Tetanus is up-to-date. CT C-spine and brain were negative for acute injury. Patient discharged to follow-up with her primary care physician in 7 days for suture removal. -DDX includes but is not limited to: Soft tissue injury, cervical injury, intracranial hemorrhage Vital Signs Vital Signs: Vital Signs Pulse Rate 64 10/13/24 12:50 Respiratory Rate 16 10/13/24 12:50 Blood Pressure 155/75 H 10/13/24 12:50 Pulse Oximetry 99 10/13/24 12:50 Pulse Rate 64 10/13/24 12:50 Respiratory Rate 16 10/13/24 12:50 Blood Pressure 155/75 H 10/13/24 12:50 Pulse Oximetry 99 10/13/24 12:50 Discharge Plan Discharge Clinical Impression: Chin laceration Patient Disposition: Home Condition: Stable Instructions: Antibiotic Form, Care For Your Stitches (ED) Additional Instructions: You were seen in the ED after a fall. A medical professional should remove your sutures in 7 days. If you develop signs of infection like increased pain, redness or purulent discharge return to the ED. Patient Language: Faroese Prescriptions: No Action albuterol sulfate [Ventolin HFA] 90 mcg/actuation HFA aerosol inhaler 2 puff inhalation QID PRN (Reason: shortness of breath or wheezing) Qty: 8.5 0RF albuterol sulfate [Ventolin HFA] 90 mcg/actuation HFA aerosol inhaler 2 puff INHALATION QID PRN (Reason: Shortness Of Breath) Qty: 8.5 3RF (DME) BreatheRite MDI Spacer Spacer See Rx Instructions .Route Qty: 1 0RF Rx Instructions: As directed QID azithromycin 500 mg tablet 500 mg PO DAILY ethambutol 100 mg tablet PO rifabutin 150 mg capsule 150 mg PO DAILY albuterol sulfate 2.5 mg /3 mL (0.083 %) solution for nebulization See Rx Instructions .ROUTE .COMPLEX Qty: 180 2RF Dose Instruction: USE 1 VIAL VIA NEBULIZER TWICE DAILY FOR 1 MONTH. USE TO CLEAR SECRETIONS Rx Instructions: USE 1 VIAL VIA NEBULIZER TWICE DAILY FOR 1 MONTH. USE TO CLEAR SECRETIONS estradiol 0.075 mg/24 hr patch weekly 1 patch transdermal WEEKLY Qty: 16 2RF sodium chloride 3 % solution for nebulization See Rx Instructions .ROUTE .COMPLEX Qty: 240 0RF Dose Instruction: USE 1 VIAL VIA NEBULIZER TWICE DAILY Rx Instructions: USE 1 VIAL VIA NEBULIZER TWICE DAILY Follow-up/Referrals: Cheyenne Greer MD [Primary Care Provider] -
== END 2024-10-13 15:45 | disposition home or self-care (01) ==
PROVIDERS: Emergency Provider Emergency Medicine; PCP Family Medicine
DX: S01.81XA Laceration without foreign body of other part of head, initial encounter (principal); E55.9 Vitamin D deficiency, unspecified; Z87.01 Personal history of pneumonia (recurrent); Z90.710 Acquired absence of both cervix and uterus; W01.0XXA Fall on same level from slipping, tripping and stumbling without subsequent striking against object, initial encounter
CPT/HCPCS: 12011; 70450; 72125; 99284

== ENCOUNTER 2025-01-26 12:52 | Outpatient (CLI) | payer BC, OTHER, SELFPAY ==
--- NOTE | ~2025-01-26 | XR_ITS ---
EXAMINATION: XR chest 2V, 01/26/2025 13:20 [facility] HISTORY: exacerbation bronchiectasis, COPD COMPARISON: No comparisons available. Technique: 2 views obtained. Findings: Probable bronchiectasis noted in the right middle lobe and lingula with infiltrates. No pneumothorax. Heart is normal size. Mediastinal and hilar contours are within normal limits. Bony thorax no acute abnormality. Impression: Probable bronchopneumonia superimposed on chronic lung disease. Follow-up recommended to assess resolution Reviewed, dictated and finalized at location P. [facility] Impression: Probable bronchopneumonia superimposed on chronic lung disease. Follow-up recom mended to assess resolution
[2025-01-26 13:30] LABS: Hematocrit 40.2 % (37.0-47.0); Hemoglobin 13.3 g/dL (12.0-15.0); Immature Granulocyte Percent A 0.3 % (0-0.5); Lymphocytes Absolute Auto 2.22 K/mm3 (0.9-3.2); Mean Corpuscular HGB Conc 33.1 g/dl (32-36); Mean Corpuscular Hemoglobin 30.2 pg (26-34); Mean Corpuscular Volume 91.4 fl (80-100); Nucleated Red Blood Cells Absolute Auto 0.000 K/mm3 (0.0-0.012); Nucleated Red Blood Cells Perc 0.0 % (0.0-0.2); Platelet Count Result 273 k/mm3 (150-375); Red Blood Count 4.40 M/mm3 (4.2-5.4); White Blood Count 6.7 K/mm3 (4.5-10.0)
[2025-01-26 13:53] LABS: Anion Gap 5 mmol/L (4-12); Blood Urea Nitrogen 16 mg/dL (7-17); Calcium 9.1 mg/dL (8.4-10.2); Carbon Dioxide 30 mmol/L (22-30); Chloride 102 mmol/L (98-107); Estimated Glomerular Filt Rate > 60; Glucose 89 mg/dL (65-110); Potassium 4.1 mmol/L (3.4-5.0); Sodium 137 mmol/L (137-145)
[2025-01-26 13:57] LABS: Strep Group A RT-PCR NOT DETECTED (Negative)
[2025-01-26 14:09] LABS: Influenza A QL RT-PCR Negative (Negative); Influenza B QL RT-PCR Negative (Negative); RSV RNA, RT-PCR Negative (Negative); SARS-CoV-2 RNA PCR Negative (Negative)
== END 2025-01-26 12:53 | disposition home or self-care (01) ==
LOC: ANHLAB 12:54
PROVIDERS: PCP Family Medicine; Visit Provider Internal Medicine Critical Care Medicine
DX: J47.9 Bronchiectasis, uncomplicated (principal); J44.1 Chronic obstructive pulmonary disease with (acute) exacerbation; A31.0 Pulmonary mycobacterial infection
CPT/HCPCS: 36415; 71046; 80048; 85025; 87637; 87651